=== PATIENT | female | born 1965 | race Caucasian/White ===

== ENCOUNTER 2018-10-01 05:42 | Inpatient (IN) | payer MEDICARE ==
--- NOTE | 2018-10-01 05:56 | ER Document Report ---
ED Medical Screen (RME) - General Stated Complaint: COUGH,HEADACHE Time Seen by Provider: 10/01/18 05:52 Notes: 52-year-old female with chief complaint of respiratory distress, worsening difficulty breathing, comes by EMS, febrile at home, temperature 100.8 on arrival, patient took 1000 mg of Tylenol just prior to arrival reportedly. Given 3 DuoNeb treatments already, 125 mg of Solu-Medrol already. Patient smokes, has history of COPD, has had influenza vaccine. Physical Exam - Respiratory Respiratory status: Respiratory distress, Labored, Tachypnea Breath sounds: Decreased air movement, Rhonchi, Wheezing
[2018-10-01] MEDS: MAGNESIUM SULFATE/D5W 1 GM/100 ML RTUPB IV SCH ×2 (06:08→06:09)
[2018-10-01 06:24] LABS: ABSOLUTE BASOPHILS # (AUTO) 0.1 10^3/uL (0.0-0.2); ABSOLUTE LYMPHOCYTES (AUTO) 3.9 10^3/uL (0.5-4.7); ABSOLUTE MONOCYTES (AUTO) 1.1 10^3/uL (0.1-1.4); ABSOLUTE NEUT (AUTO) 6.1 10^3/uL (1.7-8.2); BASOPHILS % (AUTO) 0.6 % (0-2); HEMATOCRIT 43.8 % (36.0-47.0); HEMOGLOBIN 14.7 g/dL (12.0-15.5); LYMPHOCYTES % (AUTO) 34.6 % (13-45); MEAN CORPUSCULAR HEMOGLOBIN 32.1 pg (27.0-33.4); MEAN CORPUSCULAR HGB CONC 33.5 g/dL (32.0-36.0); MEAN CORPUSCULAR VOLUME 96 fl (80-97); MONOCYTES % (AUTO) 10.1 % (3-13); PLATELET COUNT 156 10^3/uL (150-450); RED BLOOD COUNT 4.58 10^6/uL (3.72-5.28); RED CELL DISTRIBUTION WIDTH 14.6 % (11.5-14.0); SEGMENTED NEUTROPHILS % (AUTO) 54.7 % (42-78); TOTAL CELLS COUNTED % (AUTO) 100 %; WHITE BLOOD COUNT 11.2 10^3/uL (4.0-10.5)
[2018-10-01 06:25] LABS: VENOUS BLOOD HCO3 32.4 mmol/L (20-32); VENOUS BLOOD PH 7.32 (7.30-7.42)
[2018-10-01 06:27] LABS: VENOUS BLOOD PCO2 65.1 mmHg (35-63)
[2018-10-01] MEDS ORDERED: IPRATROPIUM/ALBUTEROL 0.5-2.5 MG/3 ML AMPUL NEB ONE (06:37)
[2018-10-01] MEDS ORDERED: LEVOFLOXACIN 500 MG/D5W RTU 500 MG/100 ML RTUPB IV ONE (06:38)
--- NOTE | 2018-10-01 06:52 | RADIOLOGY REPORT (SQ) ---
EXAM DESCRIPTION: XR CHEST 1 VIEW COMPLETED DATE/TME: 10/01/2018 05:54 CLINICAL HISTORY: fever, shortness of breath COMPARISON: None. FINDINGS: Single frontal view of the chest. Leads overlie the chest. The cardiomediastinal silhouette has normal size and contour. Hazy left basilar opacity. No pneumothorax or large effusion. No displaced rib fractures identified. Upper abdominal soft tissues are unremarkable. IMPRESSION: 1. Hazy left basilar opacity may represent developing lingular pneumonia or atelectasis.
[2018-10-01 06:58] LABS: ALANINE AMINOTRANSFERASE 40 U/L (9-52); ALBUMIN 4.3 g/dL (3.5-5.0); ALKALINE PHOSPHATASE 84 U/L (38-126); ANION GAP 6 (5-19); ASPARTATE AMINO TRANSFERASE 21 U/L (14-36); BILIRUBIN,DIRECT 0.2 mg/dL (0.0-0.4); BILIRUBIN,TOTAL 0.5 mg/dL (0.2-1.3); BLOOD UREA NITROGEN 15 mg/dL (7-20); CALCIUM 8.5 mg/dL (8.4-10.2); CARBON DIOXIDE 33 mmol/L (22-30); CHLORIDE 99 mmol/L (98-107); GLUCOSE 145 mg/dL (75-110); POTASSIUM 4.7 mmol/L (3.6-5.0); SODIUM 137.6 mmol/L (137-145)
--- NOTE | 2018-10-01 07:53 | EKG REPORT ---
SEVERITY:- BORDERLINE ECG - SINUS TACHYCARDIA PROBABLE LEFT ATRIAL ABNORMALITY BORDERLINE LEFT AXIS DEVIATION : Confirmed by: Nallely Castaneda MD 01-Oct-2018 07:52:50
[2018-10-01 08:12] LABS: A TYPE INFLUENZA AG NEGATIVE (NEGATIVE); B INFLUENZA AG NEGATIVE (NEGATIVE)
[2018-10-01] MEDS ORDERED: ONDANSETRON 4 MG TAB.RAPDIS PO PRN (08:34)
[2018-10-01] MEDS ORDERED: ACETAMINOPHEN 650 MG SUPP.RECT PR PRN (08:34)
[2018-10-01] MEDS ORDERED: AZITHROMYCIN 250 MG TABLET PO ONE ×2 (08:42→12:30)
[2018-10-01] MEDS ORDERED: IPRATROPIUM/ALBUTEROL 0.5-2.5 MG/3 ML AMPUL NEB SCH (10:00)
[2018-10-01] MEDS: CEFTRIAXONE 1 GM/D5W RTU 1 GM/50 ML RTUPB IV SCH (11:07)
[2018-10-01] MEDS: METHYLPREDNISOLONE INJ 40 MG/1 ML SDV IV SCH ×3 (11:07→17:28)
[2018-10-01] MEDS: ENOXAPARIN SODIUM INJ 40 MG/0.4 ML DISP.SYRIN SUBCUT SCH (11:23)
[2018-10-01] MEDS: IPRATROPIUM/ALBUTEROL 0.5-2.5 MG/3 ML AMPUL NEB SCH ×4 (11:43→23:48)
--- NOTE | 2018-10-01 13:19 | ER Document Report ---
ED General - General Chief Complaint: Breathing Difficulty Stated Complaint: COUGH,HEADACHE Time Seen by Provider: 10/01/18 05:52 TRAVEL OUTSIDE OF THE [place] IN LAST 30 DAYS: No - HPI Patient complains to provider of: Difficulty breathing Notes: Patient coming in today for evaluation of shortness of breath. Patient has a history of COPD and continues to smoke. Patient was seen by triage provider his notes provided below 52-year-old female with chief complaint of respiratory distress, worsening difficulty breathing, comes by EMS, febrile at home, temperature 100.8 on arriv al, patient took 1000 mg of Tylenol just prior to arrival reportedly. Given 3 DuoNeb treatments already, 125 mg of Solu-Medrol already. Patient smokes, has history of COPD, has had influenza vaccine. Patient upon my evaluation currently on BiPAP states she is feeling better breathing easier however not 100%. Patient denies any recent antibiotics. Patient denies any chest pain abdominal pain nausea vomiting. - Related Data Allergies/Adverse Reactions: No Known Allergies Allergy (Unverified 10/01/18 07:19) Past Medical History - Social History Smoking Status: Former Smoker Family History: Reviewed & Not Pertinent Patient has suicidal ideation: No Patient has homicidal ideation: No Pulmonary Medical History: Reports: Hx Asthma, Hx COPD Renal/ Medical History: Denies: Hx Peritoneal Dialysis Review of Systems - Review of Systems Constitutional: No symptoms reported EENT: No symptoms reported Cardiovascular: No symptoms reported Respiratory: Short of breath, Wheezing Gastrointestinal: No symptoms reported Genitourinary: No symptoms reported Female Genitourinary: No symptoms reported Musculoskeletal: No symptoms reported Skin: No symptoms reported Hematologic/Lymphatic: No symptoms reported Neurological/Psychological: No symptoms reported -: Yes All other systems reviewed and negative Physical Exam - Vital signs Vitals: Resp BP Pulse Ox 23 H 132/81 H 98 10/01/18 05:49 10/01/18 05:49 10/01/18 05:49 Interpretation: Normal - General General appearance: Appears well, Alert - HEENT Head: Normocephalic, Atraumatic Eyes: Normal Pupils: PERRL - Respiratory Respiratory status: No respiratory distress Chest status: Nontender Breath sounds: Rhonchi, Wheezing Chest palpation: Normal - Cardiovascular Rhythm: Regular Heart sounds: Normal auscultation Murmur: No - Abdominal Inspection: Normal Distension: No distension Bowel sounds: Normal Tenderness: Nontender Organomegaly: No organomegaly - Back Back: Normal, Nontender - Extremities General upper extremity: Normal inspection, Nontender, Normal color, Normal ROM, Normal temperature General lower extremity: Normal inspection, Nontender, Normal color, Normal ROM, Normal temperature, Normal weight bearing. No: Ashley's sign - Neurological Neuro grossly intact: Yes Cognition: Normal Orientation: AAOx4 Mari Coma Scale Eye Opening: Spontaneous [place] Coma Scale Verbal: Oriented [place] Coma Scale Motor: Obeys Commands Mari Coma Scale Total: 15 Speech: Normal Motor strength normal: LUE, RUE, LLE, RLE Sensory: Normal - Psychological Associated symptoms: Normal affect, Normal mood - Skin Skin Temperature: Warm Skin Moisture: Dry Skin Color: Normal Course - Re-evaluation Re-evalutation: 10/01/18 13:20 Continue to manage BiPAP during patient stay here. Laboratory studies show hypercapnia chest x-ray was read as possible developing pneumonia. Patient was started on antibiotics. We will discussed patient's case with the hospitalist will admit the patient for further evaluation and treatment - Vital Signs Vital signs: Temp Pulse Resp BP Pulse Ox 98.3 F 15 120/66 93 10/01/18 05:54 10/01/18 12:01 10/01/18 12:01 10/01/18 12:01 - Laboratory Result Diagrams: 10/01/18 06:05 10/01/18 06:05 Laboratory results interpreted by me: 10/01/18 10/01/18 10/01/18 06:05 06:05 06:05 WBC 11.2 H RDW 14.6 H VBG pCO2 65.1 H* VBG HCO3 32.4 H Carbon Dioxide 33 H Glucose 145 H Discharge - Discharge Clinical Impression: COPD exacerbation, Respiratory distress with hypercapnia Pneumonia Qualifiers: Pneumonia type: due to unspecified organism Laterality: unspecified laterality Lung location: unspecified part of lung Qualified Code(s): J18.9 - Pneumonia, unspecified organism Condition: Good Disposition: ADMITTED INPATIENT Admitting Provider: Hospitalist [facility] Unit Admitted: [facility]
[2018-10-01] MEDS ORDERED: ALBUTEROL SULFATE HFA (90 MCG/PUFF) 200 PUFF/8.5 GM MDI IH PRN (14:07)
--- NOTE | 2018-10-01 14:14 | PDOC H&P ---
History of Present Illness Admission Date/PCP: 10/01/18 10:12 Patient complains of: SOB History of Present Illness: ALISA TRAN is a 52 year old female with h/o COPD who is active smoker. she presents with acute onset SOB started 3 days ago associated with fever (max 102), cough and wheezing. CXR in ER + pneumonia. she was hypercapnic and was started on Bipap. Past Medical History Pulmonary Medical History: Reports: Asthma, Chronic Obstructive Pulmonary Disease (COPD) Social History Smoking Status: Current Every Day Smoker Family History Family History: Reviewed & Not Pertinent Parental Family History Reviewed: Yes Children Family History Reviewed: Yes Sibling(s) Family History Reviewed.: Yes Medication/Allergy Home Medications: Albuterol Sulfate [Proair Hfa Inhalation Aerosol 8.5 gm Mdi] 2 puff IH Q6HP PRN 10/01/18 Clonazepam [Klonopin] 0.5 mg PO QHS 10/01/18 Flu Vacc [id number](6Mos Up)/Pf [Fluarix Quad 8244-0104 Syringe] 0.5 ml IM .RECEIVED 06/01/18 MDD 06/01/18 10/01/18 Fluticasone/Salmeterol [Advair 250-50 Diskus 14 Dose/Diskus] 1 inh IH Q12 10/01/18 Pregabalin [Lyrica 100 Mg Capsule] 200 mg PO Q8 10/01/18 Ropinirole HCl [Requip 2 Mg Tablet] 2 mg PO Q12 10/01/18 Tiotropium [place] [Spiriva Respimat] 2 puff IH DAILY 10/01/18 Allergies/Adverse Reactions: No Known Allergies Allergy (Unverified 10/01/18 07:19) Physical Exam Vital Signs: Temp Pulse Resp BP Pulse Ox 98.3 F 15 120/66 93 10/01/18 05:54 10/01/18 12:01 10/01/18 12:01 10/01/18 12:01 Intake & Output 09/30/18 10/01/18 10/02/18 06:59 06:59 06:59 Intake Total 2 150 Balance 2 150 Weight 209 lb 10.554 oz General appearance: PRESENT: cooperative, mild distress, obese Head exam: PRESENT: atraumatic, normocephalic Eye exam: PRESENT: EOMI. ABSENT: conjunctival injection, nystagmus Ear exam: ABSENT: bleeding, drainage Mouth exam: PRESENT: moist, neck supple Neck exam: ABSENT: meningismus, tenderness Respiratory exam: PRESENT: prolonged expiratory phas, wheezes. ABSENT: accessory muscle use Cardiovascular exam: PRESENT: RRR. ABSENT: systolic murmur Pulses: PRESENT: normal radial pulses, normal dorsalis pedis pul GI/Abdominal exam: PRESENT: normal bowel sounds, soft. ABSENT: ascites, mass, tenderness Rectal exam: PRESENT: deferred Extremities exam: ABSENT: calf tenderness, joint swelling, pedal edema Musculoskeletal exam: PRESENT: normal inspection. ABSENT: deformity Neurological exam: PRESENT: alert, awake, oriented to person, oriented to place, oriented to time, oriented to situation Psychiatric exam: PRESENT: appropriate affect, flat affect. ABSENT: agitated, anxious Results Laboratory Results: 10/01/18 06:05 10/01/18 06:05 10/01/18 10/01/18 10/01/18 06:05 06:05 06:05 WBC 11.2 H RBC 4.58 Hgb 14.7 Hct 43.8 MCV 96 MCH 32.1 MCHC 33.5 RDW 14.6 H Plt Count 156 Seg Neutrophils % 54.7 Lymphocytes % 34.6 Monocytes % 10.1 Eosinophils % 0.0 Basophils % 0.6 Absolute Neutrophils 6.1 Absolute Lymphocytes 3.9 Absolute Monocytes 1.1 Absolute Eosinophils 0.0 Absolute Basophils 0.1 VBG pH VBG pCO2 VBG HCO3 VBG Base Excess Sodium 137.6 Potassium 4.7 Chloride 99 Carbon Dioxide 33 H Anion Gap 6 BUN 15 Creatinine 0.54 Est GFR ( Amer) > 60 Est GFR (Non-Af Amer) > 60 Glucose 145 H Lactic Acid 0.8 Calcium 8.5 Magnesium Total Bilirubin 0.5 AST 21 ALT 40 Alkaline Phosphatase 84 Total Protein 7.0 Albumin 4.3 10/01/18 10/01/18 06:05 06:05 WBC RBC Hgb Hct MCV MCH MCHC RDW Plt Count Seg Neutrophils % Lymphocytes % Monocytes % Eosinophils % Basophils % Absolute Neutrophils Absolute Lymphocytes Absolute Monocytes Absolute Eosinophils Absolute Basophils VBG pH 7.32 VBG pCO2 65.1 H* VBG HCO3 32.4 H VBG Base Excess 4.0 Sodium Potassium Chloride Carbon Dioxide Anion Gap BUN Creatinine Est GFR ( Amer) Est GFR (Non-Af Amer) Glucose Lactic Acid Calcium Magnesium 1.9 Total Bilirubin AST ALT Alkaline Phosphatase Total Protein Albumin 10/01/18 10:40 Sputum Gram Stain - Final 10/01/18 10:40 Sputum Sputum Culture - Final 10/01/18 06:05 Troponin I < 0.012 Impressions: Chest X-Ray 10/01/18 05:54 IMPRESSION: 1. Hazy left basilar opacity may represent developing lingular pneumonia or atelectasis. Assessment & Plan - Diagnosis (1) Acute respiratory failure with hypercapnia Is this a current diagnosis for this admission?: Yes Plan: continue BiPAP and titrate as tolerated (2) COPD exacerbation Is this a current diagnosis for this admission?: Yes Plan: start IV solumedrol, aggressive pulmonary toilet, bronchodilators (3) Pneumonia Qualifiers: Pneumonia type: due to unspecified organism Laterality: unspecified lateral ity Lung location: unspecified part of lung Qualified Code(s): J18.9 - Pneumonia, unspecified organism Is this a current diagnosis for this admission?: Yes Plan: start empiric ceftriaxone and azithromycin
[2018-10-01] MEDS ORDERED: (PENDING PHARMACY ID) (Tiotropium Bromide [Spiriva Respimat] 2 PUFF) IH SCH (14:15)
--- NOTE | 2018-10-01 17:43 | RADIOLOGY REPORT (SQ) ---
EXAM DESCRIPTION: CT CHEST WITHOUT COMPLETED DATE/TIME: 10/01/2018 3:59 pm REASON FOR STUDY: pneumonia COMPARISON: Chest x-ray 10/01/2018. TECHNIQUE: CT scan performed of the chest without intravenous contrast. Images reviewed with lung, soft tissue and bone windows. Reconstructed coronal and sagittal MPR images reviewed. All images st ored on PACS. All CT scanners at this facility use dose modulation, iterative reconstruction, and/or weight based d osing when appropriate to reduce radiation dose to as low as reasonably achievable (ALARA). [facility]: Dose Right [facility]: CareDose [facility]: Dose Right [facility]: Teradose 4D [facility]: Smart PingTune RADIATION DOSE: CT Rad equipment meets quality standard of care and radiation dose reduction techniq ues were employed. CTDIvol: 18.8 mGy. DLP: 699 mGy-cm. mGy. LIMITATIONS: Motion artifact. FINDINGS: LUNGS AND PLEURA: There are bilateral emphysematous changes. Tree-in-bud opacities are no tamiko at the bilateral upper lobes. No consolidation, pleural effusion or pneumothorax. HILAR AND MEDIASTINAL STRUCTURES: No identified masses or abnormal nodes. HEART AND VASCULAR STRUCTURES: There is 4.2 x 4.2 cm aneurysmal dilation of the ascending thoracic ao rta. Scatter atherosclerotic calcifications at the thoracic aorta. No pericardial effusion. Amaya ry arteries calcifications are noted. UPPER ABDOMEN: No significant findings. Limited exam. BONES: Mild degenerative changes at the spine. HARDWARE: None in the chest. IMPRESSION: 1. Emphysema. Tree-in-bud opacities at the bilateral upper lobes, suggestive of acute i nfection/ inflammation of the smaller airways such as bronchiolitis or bronchopneumonia. 2. 4.2 x 4.2 cm ascending thoracic aortic aneurysm. TECHNICAL DOCUMENTATION: JOB ID: [id number] [facility] Quality ID # [id number]: Final reports with documentation of one or more dose reduction techniques (e.g., Au tomated exposure control, adjustment of the mA and/or kV according to patient size, use of iterative reconstruction technique) 2010 [employer]- All Rights Reserved Reading location - IP/workstation name: [email or web address]
[2018-10-01] MEDS: ACETAMINOPHEN 325 MG TABLET PO PRN (18:59)
[2018-10-01] MEDS ORDERED: (PENDING PHARMACY ID) (Clonazepam [Klonopin] 0.5 MG) PO SCH (22:00)
[2018-10-01] MEDS: CLONAZEPAM 1 MG TABLET PO SCH (22:17)
[2018-10-01] MEDS: PREGABALIN 100 MG CAPSULE PO SCH (22:17)
[2018-10-01] MEDS: ROPINIROLE HCL 2 MG TABLET PO SCH (22:29)
[2018-10-01] MEDS: FLUTICASONE/SALMETEROL DISKUS 250-50 MCG/DOSE IH SCH (22:29)
[2018-10-02] MEDS: METHYLPREDNISOLONE INJ 40 MG/1 ML SDV IV SCH ×4 (03:24→18:58)
[2018-10-02] MEDS: IPRATROPIUM/ALBUTEROL 0.5-2.5 MG/3 ML AMPUL NEB SCH ×5 (04:34→20:29)
[2018-10-02] MEDS: PREGABALIN 100 MG CAPSULE PO SCH ×3 (06:00→21:53)
[2018-10-02 06:48] LABS: ARTERIAL BLOOD BASE EXCESS 6.4 mmol/L; ARTERIAL BLOOD H2CO3 1.94 mmol/L (1.05-1.35); ARTERIAL BLOOD HCO3 34.6 mmol/L (20-24); ARTERIAL BLOOD O2 SATURATION 98.3 % (94-98); ARTERIAL BLOOD PCO2 64.4 mmHg (35-45); ARTERIAL BLOOD PH 7.35 (7.35-7.45); ARTERIAL BLOOD PO2 127.3 mmHg (80-100); ARTERIAL BLOOD TOTAL CO2 36.6 mmol/L (21-25)
[2018-10-02 06:49] LABS: ARTERIAL BLOOD FIO2 40%
[2018-10-02 06:52] LABS: HEMATOCRIT 44.7 % (36.0-47.0); MEAN CORPUSCULAR HEMOGLOBIN 32.1 pg (27.0-33.4); MEAN CORPUSCULAR HGB CONC 33.6 g/dL (32.0-36.0); MEAN CORPUSCULAR VOLUME 96 fl (80-97); PLATELET COUNT 157 10^3/uL (150-450); RED BLOOD COUNT 4.68 10^6/uL (3.72-5.28); RED CELL DISTRIBUTION WIDTH 14.3 % (11.5-14.0); WHITE BLOOD COUNT 13.2 10^3/uL (4.0-10.5)
[2018-10-02 07:12] LABS: ANION GAP 7 (5-19); BLOOD UREA NITROGEN 15 mg/dL (7-20); CALCIUM 9.2 mg/dL (8.4-10.2); CARBON DIOXIDE 36 mmol/L (22-30); CHLORIDE 99 mmol/L (98-107); GLUCOSE 163 mg/dL (75-110); POTASSIUM 4.9 mmol/L (3.6-5.0); SODIUM 142.4 mmol/L (137-145)
[2018-10-02] MEDS: CEFTRIAXONE 1 GM/D5W RTU 1 GM/50 ML RTUPB IV SCH (09:17)
[2018-10-02] MEDS: ENOXAPARIN SODIUM INJ 40 MG/0.4 ML DISP.SYRIN SUBCUT SCH (09:18)
[2018-10-02] MEDS: AZITHROMYCIN 250 MG TABLET PO SCH (09:18)
[2018-10-02] MEDS: FLUTICASONE/SALMETEROL DISKUS 250-50 MCG/DOSE IH SCH ×2 (09:19→21:54)
[2018-10-02] MEDS: ROPINIROLE HCL 2 MG TABLET PO SCH ×2 (09:26→21:53)
[2018-10-02] MEDS ORDERED: ALBUTEROL SULFATE HFA (90 MCG/PUFF) 200 PUFF/8.5 GM MDI IH PRN (12:02)
--- NOTE | 2018-10-02 15:13 | PDOC PROGRESS REPORT ---
Subjective Progress Note for:: 10/02/18 Subjective:: Patient was seen and examined today. She has been on and off BiPAP. ABG shows persistent hypercapnia. Patient feels weak and still coughing and wheezing. She is still short of breath with exertion. Reason For Visit: COPD EXACERBATION Physical Exam Vital Signs: Temp Pulse Resp BP Pulse Ox 98.3 F 108 H 14 110/75 88 L 10/02/18 06:05 10/02/18 08:54 10/02/18 11:00 10/02/18 10:01 10/02/18 11:00 Intake & Output 10/01/18 10/02/18 10/03/18 06:59 06:59 06:59 Intake Total 2 150 290 Balance 2 150 290 Weight 209 lb 10.554 oz General appearance: PRESENT: mild distress, obese Head exam: PRESENT: atraumatic, normocephalic Mouth exam: PRESENT: neck supple. ABSENT: moist Neck exam: ABSENT: meningismus, tenderness Respiratory exam: PRESENT: accessory muscle use, prolonged expiratory phas, wheezes Cardiovascular exam: PRESENT: RRR. ABSENT: systolic murmur Pulses: PRESENT: normal radial pulses GI/Abdominal exam: PRESENT: normal bowel sounds, soft. ABSENT: mass, tenderness Rectal exam: PRESENT: deferred Extremities exam: ABSENT: pedal edema Neurological exam: PRESENT: alert, awake, oriented to person, oriented to place, oriented to time, oriented to situation Results Laboratory Results: 10/02/18 06:10 10/02/18 06:10 10/02/18 10/02/18 10/02/18 06:10 06:10 06:31 WBC 13.2 H RBC 4.68 Hgb 15.0 Hct 44.7 MCV 96 MCH 32.1 MCHC 33.6 RDW 14.3 H Plt Count 157 Carbonic Acid 1.94 H HCO3/H2CO3 Ratio 17:1 ABG pH 7.35 ABG pCO2 64.4 H ABG pO2 127.3 H ABG HCO3 34.6 H ABG O2 Saturation 98.3 H ABG Base Excess 6.4 FiO2 40% Sodium 142.4 Potassium 4.9 Chloride 99 Carbon Dioxide 36 H Anion Gap 7 BUN 15 Creatinine 0.42 L Est GFR ( Amer) > 60 Est GFR (Non-Af Amer) > 60 Glucose 163 H Calcium 9.2 10/01/18 10:40 Sputum Gram Stain - Final 10/01/18 10:40 Sputum Sputum Culture - Final 10/01/18 06:05 Troponin I < 0.012 Impressions: Chest CT 10/01/18 00:00 IMPRESSION: 1. Emphysema. Tree-in-bud opacities at the bilateral upper lobes, suggestive of acute infection/ inflammation of the smaller airways such as bronchiolitis or bronchopneumonia. 2. 4.2 x 4.2 cm ascending thoracic aortic aneurysm. Chest X-Ray 10/01/18 05:54 IMPRESSION: 1. Hazy left basilar opacity may represent developing lingular pneumonia or atelectasis. Assessment & Plan - Diagnosis (1) Acute respiratory failure with hypercapnia Is this a current diagnosis for this admission?: Yes Plan: continue BiPAP and titrate as tolerated. Consult pulmonology. (2) COPD exacerbation Is this a current diagnosis for this admission?: Yes Plan: Continue IV solumedrol, aggressive pulmonary toilet, bronchodilators (3) Pneumonia Qualifiers: Pneumonia type: due to unspecified organism Laterality: unspecified laterality Lung location: unspecified part of lung Qualified Code(s): J18.9 - Pneumonia, unspecified organism Is this a current diagnosis for this admission?: Yes Plan: Continue empiric ceftriaxone and azithromycin. Monitor blood culture.
[2018-10-02] MEDS: CLONAZEPAM 1 MG TABLET PO SCH (21:53)
[2018-10-02] MEDS ORDERED: ALBUTEROL SULFATE HFA (90 MCG/PUFF) 200 PUFF/8.5 GM MDI IH ONE (22:28)
[2018-10-03] MEDS: IPRATROPIUM/ALBUTEROL 0.5-2.5 MG/3 ML AMPUL NEB SCH ×6 (00:34→21:23)
[2018-10-03] MEDS: METHYLPREDNISOLONE INJ 40 MG/1 ML SDV IV SCH ×5 (01:09→22:10)
[2018-10-03] MEDS: ACETAMINOPHEN 325 MG TABLET PO PRN ×2 (03:55→13:33)
[2018-10-03 04:39] LABS: HEMATOCRIT 42.1 % (36.0-47.0); HEMOGLOBIN 14.2 g/dL (12.0-15.5); MEAN CORPUSCULAR HGB CONC 33.8 g/dL (32.0-36.0); MEAN CORPUSCULAR VOLUME 95 fl (80-97); PLATELET COUNT 150 10^3/uL (150-450); RED BLOOD COUNT 4.45 10^6/uL (3.72-5.28); RED CELL DISTRIBUTION WIDTH 14.5 % (11.5-14.0); WHITE BLOOD COUNT 14.2 10^3/uL (4.0-10.5)
[2018-10-03 05:02] LABS: ANION GAP 9 (5-19); BLOOD UREA NITROGEN 20 mg/dL (7-20); CARBON DIOXIDE 33 mmol/L (22-30); CHLORIDE 101 mmol/L (98-107); GLUCOSE 233 mg/dL (75-110); POTASSIUM 4.6 mmol/L (3.6-5.0)
[2018-10-03] MEDS: PREGABALIN 100 MG CAPSULE PO SCH ×3 (05:31→22:10)
[2018-10-03 06:05] LABS: ARTERIAL BLOOD BASE EXCESS 3.8 mmol/L; ARTERIAL BLOOD H2CO3 1.66 mmol/L (1.05-1.35); ARTERIAL BLOOD HCO3 30.7 mmol/L (20-24); ARTERIAL BLOOD O2 SATURATION 94.6 % (94-98); ARTERIAL BLOOD PCO2 55.3 mmHg (35-45); ARTERIAL BLOOD PH 7.36 (7.35-7.45); ARTERIAL BLOOD PO2 76.2 mmHg (80-100); ARTERIAL BLOOD TOTAL CO2 32.4 mmol/L (21-25)
[2018-10-03 06:09] LABS: ARTERIAL BLOOD FIO2 35%
[2018-10-03] MEDS: CEFTRIAXONE 1 GM/D5W RTU 1 GM/50 ML RTUPB IV SCH (09:07)
[2018-10-03] MEDS: AZITHROMYCIN 250 MG TABLET PO SCH (09:07)
[2018-10-03] MEDS: ROPINIROLE HCL 2 MG TABLET PO SCH ×2 (09:08→22:11)
[2018-10-03] MEDS: ENOXAPARIN SODIUM INJ 40 MG/0.4 ML DISP.SYRIN SUBCUT SCH (09:08)
[2018-10-03] MEDS: FLUTICASONE/SALMETEROL DISKUS 250-50 MCG/DOSE IH SCH ×2 (09:08→22:12)
--- NOTE | 2018-10-03 11:04 | RADIOLOGY REPORT (SQ) ---
EXAM DESCRIPTION: CHEST SINGLE VIEW COMPLETED DATE/TIME: 10/03/2018 10:45 am REASON FOR STUDY: pneumonia COMPARISON: 10/03/2018 EXAM PARAMETERS: NUMBER OF VIEWS: One view. TECHNIQUE: Single frontal radiographic view of the chest acquired. RADIATION DOSE: NA LIMITATIONS: None. FINDINGS: LUNGS AND PLEURA: Improved but persistent minimal lingular opacities. No significant effu deedee. No pneumothorax. MEDIASTINUM AND HILAR STRUCTURES: No masses. Contour normal. HEART AND VASCULAR STRUCTURES: Normal heart size. Atherosclerotic aorta. BONES: No acute findings. HARDWARE: None in the chest. OTHER: No other significant finding. IMPRESSION: Improved but persistent hazy left lingular opacities. TECHNICAL DOCUMENTATION: JOB ID: [id number] [address]- All Rights Reserved Reading location - IP/workstation name: [email or web address]
--- NOTE | 2018-10-03 14:43 | PDOC PROGRESS REPORT ---
Subjective Progress Note for:: 10/03/18 Subjective:: Patient was seen and examined today. She has been on and off BiPAP. ABG shows persistent hypercapnia but currently improving with PCO2 of 55. She is using BiPAP during sleep for now. She is still coughing and wheezing and not back at her baseline yet. Reason For Visit: COPD EXACERBATION Physical Exam Vital Signs: Temp Pulse Resp BP Pulse Ox 98.0 F 105 H 20 121/76 89 L 10/03/18 12:07 10/03/18 14:00 10/03/18 13:04 10/03/18 12:07 10/03/18 13:04 Intake & Output 10/02/18 10/03/18 10/04/18 06:59 06:59 06:59 Intake Total 150 408 50 Balance 150 408 50 Weight 211 lb 6.773 oz General appearance: PRESENT: no acute distress, cooperative, obese, other - Sleeping on BiPAP Head exam: PRESENT: atraumatic, normocephalic Mouth exam: PRESENT: moist, neck supple Neck exam: ABSENT: meningismus, tenderness Respiratory exam: PRESENT: wheezes. ABSENT: accessory muscle use Cardiovascular exam: PRESENT: RRR Pulses: PRESENT: normal radial pulses GI/Abdominal exam: PRESENT: normal bowel sounds, soft. ABSENT: tenderness Rectal exam: PRESENT: deferred Musculoskeletal exam: PRESENT: ambulatory. ABSENT: deformity Neurological exam: PRESENT: alert, awake, oriented to person, oriented to place, oriented to time, oriented to situation Results Laboratory Results: 10/03/18 04:28 10/03/18 04:28 10/03/18 10/03/18 10/03/18 04:28 04:28 05:56 WBC 14.2 H RBC 4.45 Hgb 14.2 Hct 42.1 MCV 95 MCH 32.0 MCHC 33.8 RDW 14.5 H Plt Count 150 Carbonic Acid 1.66 H HCO3/H2CO3 Ratio 18:1 ABG pH 7.36 ABG pCO2 55.3 H ABG pO2 76.2 L ABG HCO3 30.7 H ABG O2 Saturation 94.6 ABG Base Excess 3.8 FiO2 35% Sodium 143.0 Potassium 4.6 Chloride 101 Carbon Dioxide 33 H Anion Gap 9 BUN 20 Creatinine 0.50 L Est GFR ( Amer) > 60 Est GFR (Non-Af Amer) > 60 Glucose 233 H Calcium 9.0 10/01/18 06:05 Troponin I < 0.012 Impressions: Chest CT 10/01/18 00:00 IMPRESSION: 1. Emphysema. Tree-in-bud opacities at the bilateral upper lobes, suggestive of acute infection/ inflammation of the smaller airways such as bronchiolitis or bronchopneumonia. 2. 4.2 x 4.2 cm ascending thoracic aortic aneurysm. Chest X-Ray 10/03/18 06:00 IMPRESSION: Improved but persistent hazy left lingular opacities. Assessment & Plan - Diagnosis (1) Acute respiratory failure with hypercapnia Is this a current diagnosis for this admission?: Yes Plan: continue BiPAP and titrate as tolerated. Currently she is using during sleep only. Consult pulmonology still pending. (2) COPD exacerbation Is this a current diagnosis for this admission?: Yes Plan: Continue IV solumedrol, aggressive pulmonary toilet, bronchodilators (3) Pneumonia Qualifiers: Pneumonia type: due to unspecified organism Laterality: unspecified laterality Lung location: unspecified part of lung Qualified Code(s): J18.9 - Pneumonia, unspecified organism Is this a current diagnosis for this admission?: Yes Plan: Continue empiric ceftriaxone and azithromycin. Monitor blood culture.
[2018-10-03] MEDS: CLONAZEPAM 1 MG TABLET PO SCH (22:09)
[2018-10-03] MEDS: TIOTROPIUM BROMIDE DPI 5 CAP/KIT (18 MCG/CAP) IH SCH (22:11)
[2018-10-04] MEDS: IPRATROPIUM/ALBUTEROL 0.5-2.5 MG/3 ML AMPUL NEB SCH ×6 (00:12→19:20)
[2018-10-04] MEDS: METHYLPREDNISOLONE INJ 40 MG/1 ML SDV IV SCH ×4 (03:14→21:35)
[2018-10-04] MEDS: TEMAZEPAM 7.5 MG CAPSULE PO PRN (04:30)
[2018-10-04 06:21] LABS: HEMATOCRIT 41.5 % (36.0-47.0); HEMOGLOBIN 13.9 g/dL (12.0-15.5); MEAN CORPUSCULAR HEMOGLOBIN 31.9 pg (27.0-33.4); MEAN CORPUSCULAR HGB CONC 33.5 g/dL (32.0-36.0); MEAN CORPUSCULAR VOLUME 95 fl (80-97); PLATELET COUNT 139 10^3/uL (150-450); RED BLOOD COUNT 4.36 10^6/uL (3.72-5.28); RED CELL DISTRIBUTION WIDTH 14.6 % (11.5-14.0); WHITE BLOOD COUNT 10.6 10^3/uL (4.0-10.5)
[2018-10-04] MEDS: PREGABALIN 100 MG CAPSULE PO SCH ×3 (06:31→21:36)
[2018-10-04 06:41] LABS: ANION GAP 10 (5-19); BLOOD UREA NITROGEN 19 mg/dL (7-20); CARBON DIOXIDE 31 mmol/L (22-30); CHLORIDE 101 mmol/L (98-107); GLUCOSE 256 mg/dL (75-110); POTASSIUM 4.7 mmol/L (3.6-5.0); SODIUM 141.7 mmol/L (137-145)
[2018-10-04 06:44] LABS: ARTERIAL BLOOD BASE EXCESS 4.8 mmol/L; ARTERIAL BLOOD FIO2 3L; ARTERIAL BLOOD H2CO3 1.78 mmol/L (1.05-1.35); ARTERIAL BLOOD HCO3 32.2 mmol/L (20-24); ARTERIAL BLOOD O2 SATURATION 95.6 % (94-98); ARTERIAL BLOOD PCO2 59.3 mmHg (35-45); ARTERIAL BLOOD PH 7.35 (7.35-7.45); ARTERIAL BLOOD PO2 83.8 mmHg (80-100)
[2018-10-04] MEDS: FLUTICASONE/SALMETEROL DISKUS 250-50 MCG/DOSE IH SCH ×2 (10:56→21:37)
[2018-10-04] MEDS: ENOXAPARIN SODIUM INJ 40 MG/0.4 ML DISP.SYRIN SUBCUT SCH (10:57)
[2018-10-04] MEDS: AZITHROMYCIN 250 MG TABLET PO SCH (10:58)
[2018-10-04] MEDS: ROPINIROLE HCL 2 MG TABLET PO SCH ×2 (10:58→21:36)
[2018-10-04] MEDS: TIOTROPIUM BROMIDE DPI 5 CAP/KIT (18 MCG/CAP) IH SCH (10:59)
[2018-10-04] MEDS: CEFTRIAXONE 1 GM/D5W RTU 1 GM/50 ML RTUPB IV SCH (11:01)
--- NOTE | 2018-10-04 15:38 | CONSULTATION REPORT E ---
Consultation Report NAME: ALISA HIRSCH : 1965 AGE: 52Y DATE: 10/03/2018 309 A TO: RAMONA SHANE M.D. FROM: NKECHI PUENTE M.D. Requesting Physician HISTORY OF PRESENT ILLNESS: The patient is a 53-year-old female who came in with increasing dyspnea, wheezing, chest tightness over the last 2 to 3 days. She denies labile coughing, yellow-green phlegm, denies any fevers or chills at home. Condition worsened so patient went to the emergency room and was subsequently admitted. Patient was placed on BiPAP and given IV solu-medrol and nebulizer treatment. Clearing the cough makes him feel a lot better. She denies hemoptysis. No vomiting or diarrhea. PAST MEDICAL HISTORY: 1. Asthma. 2. COPD. SOCIAL HISTORY: History of smoking a pack a day for several years. FAMILY HISTORY: Reviewed and nothing pertinent. HOME MEDICATIONS: 1. Albuterol ProAir inhaler 2 puffs every 6 hours as needed. 2. Clonopin 0.5 mg p.o. at bedtime for severe anxiety. 3. Advair 250/50 1 puff daily. 4. Lyrica 100 mg capsule. 5. Requip 2 mg p.o. q. 12. ALLERGIES: No drug allergies. PHYSICAL EXAMINATION: GENERAL: The patient is a wake, alert, coherent, oriented x3. VITAL SIGNS: Temperature 97.7, T-max of 98 degrees Fahrenheit. Heart rate is 91, blood pressure is 143/65, respiratory rate of 18, saturation is 95%. HEENT: Eyes; no jaundice or pallor. Ears, nose, and throat; no ear drainage and no nasal discharge. CHEST AND LUNGS: No wheezing, no rhonchi, no coarse crackles. CARDIOVASCULAR: S1, S2 distinct. Normal rate, regular rhythm. ABDOMEN: Flabby. Positive bowel sounds. Soft, nondistended. EXTREMITIES: No joint swelling. No cellulitis. LABORATORY: CBC done today showed a white count of 14.2, hemoglobin of 13.3 yesterday, hemoglobin is 14.3, hematocrit 42.1, and platelet count 150. ABGs done today shows pH of 7.3, PCO2 55.3, PO2 76.2, and oxygen saturation 94.6%. Chemistry done today showed sodium is 143, potassium 4.6, chloride 101, anion gap is 33, BUN 9, creatinine 2, glucose 233, and calcium 9. Chest x-ray done today showed ,October 03, 2018, showed some increase in filtration in left lower lung. Chest CT scan done on October 01, 2018 showed some findings suspicious for infectious process. No consolidation. Chest x-ray done on October 01, 2018 shows retained blood opacities and interstitial infiltrate involving the left lingular area. ASSESSMENT: 1. COPD/Bronchial asthma in active severe exacerbation. Currently improving. There is no wheezing or spasms in the posterior chest. Some intermittent wheezing in the anterior chest left side. 2. Pneumonia, early involving the lingular segment based on today's x-ray and chest CAT scan on October 01, 2018. PLAN/RECOMMENDATIONS: 1. Continue Advair 250 1 puff daily. 2. Discontinue the Spiriva Respimat; not available. Patient will use Spiriva inhaler 1 capsule daily. 3. Decrease solu-medrol dose to 40 mg q. 8 hours. 4. GI prophylaxis. 5. Patient is taking Clonopin for severe anxiety. 6. Continue antinue antibiotics. DICTATING PHYSICIAN: RAMONA SHANE MD,DAVID,MPH [id number] [id number] ID: [id number] JOB#: [id number] ACCT: [id number] cc:RAMONA SHANE M.D. > MTDD
--- NOTE | 2018-10-04 18:33 | PDOC PROGRESS REPORT ---
Subjective Progress Note for:: 10/04/18 Subjective:: Patient was seen and examined today. She has been on and off BiPAP. ABG shows persistent hypercapnia but currently improving with PCO2 of 59. She is using BiPAP during sleep for now. She is still coughing and wheezing and far from her baseline. Reason For Visit: COPD EXACERBATION Physical Exam Vital Signs: Temp Pulse Resp BP Pulse Ox 97.7 F 96 22 H 148/78 H 96 10/04/18 15:32 10/04/18 16:03 10/04/18 16:03 10/04/18 15:32 10/04/18 16:03 Intake & Output 10/03/18 10/04/18 10/05/18 06:59 06:59 06:59 Intake Total 408 727 674 Balance 408 727 674 Weight 211 lb 6.773 oz 215 lb 9.793 oz General appearance: PRESENT: mild distress, obese, other - BiPAP Head exam: PRESENT: atraumatic, normocephalic Eye exam: ABSENT: conjunctival injection Mouth exam: PRESENT: moist, neck supple Neck exam: ABSENT: meningismus, tenderness Respiratory exam: PRESENT: prolonged expiratory phas, wheezes. ABSENT: accessory muscle use Cardiovascular exam: PRESENT: RRR Pulses: PRESENT: normal radial pulses GI/Abdominal exam: PRESENT: normal bowel sounds, soft Rectal exam: PRESENT: deferred Extremities exam: ABSENT: joint swelling, pedal edema Neurological exam: PRESENT: alert, awake, oriented to person, oriented to place, oriented to time, oriented to situation Psychiatric exam: PRESENT: anxious Results Laboratory Results: 10/04/18 05:37 10/04/18 05:37 10/04/18 10/04/18 10/04/18 05:37 05:37 06:25 WBC 10.6 H RBC 4.36 Hgb 13.9 Hct 41.5 MCV 95 MCH 31.9 MCHC 33.5 RDW 14.6 H Plt Count 139 L Carbonic Acid 1.78 H HCO3/H2CO3 Ratio 18:1 ABG pH 7.35 ABG pCO2 59.3 H ABG pO2 83.8 ABG HCO3 32.2 H ABG O2 Saturation 95.6 ABG Base Excess 4.8 FiO2 3L Sodium 141.7 Potassium 4.7 Chloride 101 Carbon Dioxide 31 H Anion Gap 10 BUN 19 Creatinine 0.53 Est GFR ( Amer) > 60 Est GFR (Non-Af Amer) > 60 Glucose 256 H Calcium 9.0 10/01/18 06:05 Troponin I < 0.012 Impressions: Chest CT 10/01/18 00:00 IMPRESSION: 1. Emphysema. Tree-in-bud opacities at the bilateral upper lobes, suggestive of acute infection/ inflammation of the smaller airways such as bronchiolitis or bronchopneumonia. 2. 4.2 x 4.2 cm ascending thoracic aortic aneurysm. Chest X-Ray 10/03/18 06:00 IMPRESSION: Improved but persistent hazy left lingular opacities. Assessment & Plan - Diagnosis (1) Acute respiratory failure with hypercapnia Is this a current diagnosis for this admission?: Yes Plan: continue BiPAP and titrate as tolerated. Currently she is using during sleep and intermittently during the day. Appreciate consult from pulmonology.may need BiPAP on discharge. (2) COPD exacerbation Is this a current diagnosis for this admission?: Yes Plan: Continue IV solumedrol (dose decreased), aggressive pulmonary toilet, bronchodilators (3) Pneumonia Qualifiers: Pneumonia type: due to unspecified organism Laterality: unspecified laterality Lung location: unspecified part of lung Qualified Code(s): J18.9 - Pneumonia, unspecified organism Is this a current diagnosis for this admission?: Yes Plan: Continue empiric ceftriaxone and azithromycin. Monitor blood culture.
[2018-10-04] MEDS: CLONAZEPAM 1 MG TABLET PO SCH (21:36)
[2018-10-05] MEDS: IPRATROPIUM/ALBUTEROL 0.5-2.5 MG/3 ML AMPUL NEB SCH ×7 (00:21→23:54)
[2018-10-05] MEDS: ACETAMINOPHEN 325 MG TABLET PO PRN ×2 (04:41→21:36)
[2018-10-05] MEDS: TEMAZEPAM 7.5 MG CAPSULE PO PRN (04:41)
[2018-10-05] MEDS: METHYLPREDNISOLONE INJ 40 MG/1 ML SDV IV SCH ×4 (04:41→21:29)
[2018-10-05] MEDS: PREGABALIN 100 MG CAPSULE PO SCH ×3 (05:24→21:30)
[2018-10-05 05:29] LABS: HEMATOCRIT 41.6 % (36.0-47.0); HEMOGLOBIN 14.1 g/dL (12.0-15.5); MEAN CORPUSCULAR HGB CONC 33.8 g/dL (32.0-36.0); MEAN CORPUSCULAR VOLUME 95 fl (80-97); PLATELET COUNT 141 10^3/uL (150-450); RED CELL DISTRIBUTION WIDTH 14.4 % (11.5-14.0); WHITE BLOOD COUNT 9.6 10^3/uL (4.0-10.5)
[2018-10-05 05:59] LABS: ARTERIAL BLOOD BASE EXCESS 5.8 mmol/L; ARTERIAL BLOOD H2CO3 1.83 mmol/L (1.05-1.35); ARTERIAL BLOOD HCO3 33.3 mmol/L (20-24); ARTERIAL BLOOD O2 SATURATION 97.3 % (94-98); ARTERIAL BLOOD PCO2 60.7 mmHg (35-45); ARTERIAL BLOOD PH 7.36 (7.35-7.45); ARTERIAL BLOOD PO2 101.8 mmHg (80-100); ARTERIAL BLOOD TOTAL CO2 35.2 mmol/L (21-25)
[2018-10-05 05:59] LABS: ANION GAP 8 (5-19); BLOOD UREA NITROGEN 18 mg/dL (7-20); CALCIUM 8.9 mg/dL (8.4-10.2); CARBON DIOXIDE 34 mmol/L (22-30); CHLORIDE 99 mmol/L (98-107); GLUCOSE 225 mg/dL (75-110); POTASSIUM 4.8 mmol/L (3.6-5.0); SODIUM 141.3 mmol/L (137-145)
[2018-10-05 06:02] LABS: ARTERIAL BLOOD FIO2 35%
[2018-10-05] MEDS: ROPINIROLE HCL 2 MG TABLET PO SCH ×2 (10:53→21:30)
[2018-10-05] MEDS: CEFTRIAXONE 1 GM/D5W RTU 1 GM/50 ML RTUPB IV SCH (10:53)
[2018-10-05] MEDS: AZITHROMYCIN 250 MG TABLET PO SCH (10:53)
[2018-10-05] MEDS: FLUTICASONE/SALMETEROL DISKUS 250-50 MCG/DOSE IH SCH ×2 (10:54→21:31)
[2018-10-05] MEDS: TIOTROPIUM BROMIDE DPI 5 CAP/KIT (18 MCG/CAP) IH SCH (10:54)
[2018-10-05] MEDS: ENOXAPARIN SODIUM INJ 40 MG/0.4 ML DISP.SYRIN SUBCUT SCH (10:55)
--- NOTE | 2018-10-05 11:38 | RADIOLOGY REPORT (SQ) ---
EXAM DESCRIPTION: CHEST 2 VIEWS COMPLETED DATE/TIME: 10/05/2018 10:51 am REASON FOR STUDY: pneumonia COMPARISON: CT chest 10/01/2018 AP chest 10/01/2018, 10/03/2018 EXAM PARAMETERS: NUMBER OF VIEWS: two views TECHNIQUE: Digital Frontal and Lateral radiographic views of the chest acquired. RADIATION DOSE: NA LIMITATIONS: none FINDINGS: LUNGS AND PLEURA: No opacities, masses or pneumothorax. No pleural effusion. MEDIASTINUM AND HILAR STRUCTURES: No masses or contour abnormalities. HEART AND VASCULAR STRUCTURES: Heart normal size. No evidence for failure. BONES: No acute findings. HARDWARE: None in the chest. OTHER: No other significant finding. IMPRESSION: NO ACUTE RADIOGRAPHIC FINDING IN THE CHEST. TECHNICAL DOCUMENTATION: JOB ID: [id number] [employer]- All Rights Reserved Reading location - IP/workstation name: [email or web address]
--- NOTE | 2018-10-05 15:16 | PDOC PROGRESS REPORT ---
Subjective Progress Note for:: 10/05/18 Subjective:: Patient was seen and examined today. She has been on and off BiPAP. ABG shows persistent hypercapnia but improved and now stable. She is using BiPAP during sleep for now. She is still coughing and wheezing and not at her baseline. Reason For Visit: COPD EXACERBATION Physical Exam Vital Signs: Temp Pulse Resp BP Pulse Ox 97.5 F 71 16 124/74 96 10/05/18 07:31 10/05/18 11:25 10/05/18 11:45 10/05/18 07:31 10/05/18 11:25 Intake & Output 10/04/18 10/05/18 10/06/18 06:59 06:59 06:59 Intake Total 727 914 50 Balance 727 914 50 Weight 215 lb 9.793 oz 206 lb 5.643 oz General appearance: PRESENT: no acute distress, cooperative, obese Head exam: PRESENT: atraumatic, normocephalic Mouth exam: PRESENT: moist, neck supple Neck exam: ABSENT: meningismus, tenderness Respiratory exam: PRESENT: prolonged expiratory phas, wheezes Cardiovascular exam: PRESENT: RRR Pulses: PRESENT: normal radial pulses GI/Abdominal exam: PRESENT: normal bowel sounds, soft Rectal exam: PRESENT: deferred Musculoskeletal exam: PRESENT: ambulatory. ABSENT: deformity Neurological exam: PRESENT: alert, awake, oriented to person, oriented to place, oriented to time, oriented to situation Results Laboratory Results: 10/05/18 04:19 10/05/18 04:19 10/05/18 10/05/18 10/05/18 04:19 04:19 05:40 WBC 9.6 RBC 4.40 Hgb 14.1 Hct 41.6 MCV 95 MCH 32.0 MCHC 33.8 RDW 14.4 H Plt Count 141 L Carbonic Acid 1.83 H HCO3/H2CO3 Ratio 18:1 ABG pH 7.36 ABG pCO2 60.7 H ABG pO2 101.8 H ABG HCO3 33.3 H ABG O2 Saturation 97.3 ABG Base Excess 5.8 FiO2 35% Sodium 141.3 Potassium 4.8 Chloride 99 Carbon Dioxide 34 H Anion Gap 8 BUN 18 Creatinine 0.54 Est GFR ( Amer) > 60 Est GFR (Non-Af Amer) > 60 Glucose 225 H Calcium 8.9 10/01/18 06:05 Troponin I < 0.012 Impressions: Chest CT 10/01/18 00:00 IMPRESSION: 1. Emphysema. Tree-in-bud opacities at the bilateral upper lobes, suggestive of acute infection/ inflammation of the smaller airways such as bronchiolitis or bronchopneumonia. 2. 4.2 x 4.2 cm ascending thoracic aortic aneurysm. Chest X-Ray 10/05/18 06:00 IMPRESSION: NO ACUTE RADIOGRAPHIC FINDING IN THE CHEST. Assessment & Plan - Diagnosis (1) Acute respiratory failure with hypercapnia Is this a current diagnosis for this admission?: Yes Plan: continue BiPAP and titrate as tolerated. Currently she is using during sleep and intermittently during the day. Appreciate consult from pulmonology. may need BiPAP on discharge. (2) COPD exacerbation Is this a current diagnosis for this admission?: Yes Plan: Continue IV solumedrol, aggressive pulmonary toilet, bronchodilators. Not at her baseline yet. (3) Pneumonia Qualifiers: Pneumonia type: due to unspecified organism Laterality: unspecified laterality Lung location: unspecified part of lung Qualified Code(s): J18.9 - Pneumonia, unspecified organism Is this a current diagnosis for this admission?: Yes Plan: Continue empiric ceftriaxone and azithromycin. Monitor blood culture.
[2018-10-05] MEDS: CLONAZEPAM 1 MG TABLET PO SCH (21:30)
[2018-10-06] MEDS: METHYLPREDNISOLONE INJ 40 MG/1 ML SDV IV SCH ×4 (02:16→21:17)
[2018-10-06] MEDS: TEMAZEPAM 7.5 MG CAPSULE PO PRN (03:28)
[2018-10-06] MEDS: IPRATROPIUM/ALBUTEROL 0.5-2.5 MG/3 ML AMPUL NEB SCH ×5 (04:19→20:27)
[2018-10-06] MEDS: PREGABALIN 100 MG CAPSULE PO SCH ×3 (05:23→21:17)
[2018-10-06] MEDS: FLUTICASONE/SALMETEROL DISKUS 250-50 MCG/DOSE IH SCH ×2 (09:31→21:17)
[2018-10-06] MEDS: ENOXAPARIN SODIUM INJ 40 MG/0.4 ML DISP.SYRIN SUBCUT SCH (09:31)
[2018-10-06] MEDS: ROPINIROLE HCL 2 MG TABLET PO SCH ×2 (09:31→21:17)
[2018-10-06] MEDS: TIOTROPIUM BROMIDE DPI 5 CAP/KIT (18 MCG/CAP) IH SCH (09:32)
[2018-10-06] MEDS: CEFTRIAXONE 1 GM/D5W RTU 1 GM/50 ML RTUPB IV SCH (09:32)
[2018-10-06] MEDS: AZITHROMYCIN 250 MG TABLET PO SCH (09:33)
[2018-10-06] MEDS: ACETAMINOPHEN 325 MG TABLET PO PRN (11:57)
--- NOTE | 2018-10-06 18:19 | PDOC PROGRESS REPORT ---
Subjective Progress Note for:: 10/06/18 Subjective:: Patient was seen and examined today. Currently on BiPAP. She has been on and off BiPAP. She still does not feel that she is able to go home. Reason For Visit: COPD EXACERBATION Physical Exam Vital Signs: Temp Pulse Resp BP Pulse Ox 97.5 F 69 18 150/81 H 93 10/06/18 15:33 10/06/18 16:16 10/06/18 16:16 10/06/18 15:33 10/06/18 16:16 Intake & Output 10/05/18 10/06/18 10/07/18 06:59 06:59 06:59 Intake Total 914 968 286 Balance 914 968 286 Weight 206 lb 5.643 oz 208 lb 5.389 oz General appearance: PRESENT: cooperative, mild distress, obese Head exam: PRESENT: atraumatic, normocephalic Eye exam: ABSENT: conjunctival injection Mouth exam: PRESENT: moist, neck supple Neck exam: ABSENT: meningismus, tenderness Respiratory exam: PRESENT: accessory muscle use, rhonchi, wheezes Cardiovascular exam: PRESENT: RRR Pulses: PRESENT: normal radial pulses GI/Abdominal exam: PRESENT: normal bowel sounds, soft. ABSENT: tenderness Rectal exam: PRESENT: deferred Musculoskeletal exam: PRESENT: ambulatory. ABSENT: deformity Neurological exam: PRESENT: alert, awake, oriented to person, oriented to place, oriented to time, oriented to situation Results Laboratory Results: 10/05/18 04:19 10/05/18 04:19 10/01/18 08:33 Blood Blood Culture - Final NO GROWTH IN 5 DAYS 10/01/18 06:05 Blood Blood Culture - Final NO GROWTH IN 5 DAYS 10/01/18 06:05 Troponin I < 0.012 Impressions: Chest CT 10/01/18 00:00 IMPRESSION: 1. Emphysema. Tree-in-bud opacities at the bilateral upper lobes, suggestive of acute infection/ inflammation of the smaller airways such as bronchiolitis or bronchopneumonia. 2. 4.2 x 4.2 cm ascending thoracic aortic aneurysm. Chest X-Ray 10/05/18 06:00 IMPRESSION: NO ACUTE RADIOGRAPHIC FINDING IN THE CHEST. Assessment & Plan - Diagnosis (1) Acute respiratory failure with hypercapnia Is this a current diagnosis for this admission?: Yes Plan: continue BiPAP and titrate as tolerated. she is using during sleep and intermittently during the day. Appreciate consult from pulmonology. may need BiPAP on discharge. (2) COPD exacerbation Is this a current diagnosis for this admission?: Yes Plan: Continue IV solumedrol, aggressive pulmonary toilet, bronchodilators. Not at her baseline yet. (3) Pneumonia Qualifiers: Pneumonia type: due to unspecified organism Laterality: unspecified laterality Lung location: unspecified part of lung Qualified Code(s): J18.9 - Pneumonia, unspecified organism Is this a current diagnosis for this admission?: Yes Plan: Continue empiric ceftriaxone and azithromycin. Monitor blood culture.
[2018-10-06] MEDS: CLONAZEPAM 1 MG TABLET PO SCH (21:17)
[2018-10-07] MEDS: IPRATROPIUM/ALBUTEROL 0.5-2.5 MG/3 ML AMPUL NEB SCH ×6 (00:30→19:59)
[2018-10-07] MEDS: TEMAZEPAM 7.5 MG CAPSULE PO PRN (03:33)
[2018-10-07] MEDS: METHYLPREDNISOLONE INJ 40 MG/1 ML SDV IV SCH ×2 (03:33→10:20)
[2018-10-07 05:14] LABS: HEMATOCRIT 40.6 % (36.0-47.0); HEMOGLOBIN 13.9 g/dL (12.0-15.5); MEAN CORPUSCULAR HEMOGLOBIN 32.2 pg (27.0-33.4); MEAN CORPUSCULAR HGB CONC 34.3 g/dL (32.0-36.0); MEAN CORPUSCULAR VOLUME 94 fl (80-97); PLATELET COUNT 145 10^3/uL (150-450); RED BLOOD COUNT 4.33 10^6/uL (3.72-5.28); WHITE BLOOD COUNT 8.4 10^3/uL (4.0-10.5)
[2018-10-07 05:39] LABS: ANION GAP 8 (5-19); BLOOD UREA NITROGEN 21 mg/dL (7-20); CALCIUM 8.7 mg/dL (8.4-10.2); CARBON DIOXIDE 34 mmol/L (22-30); CHLORIDE 97 mmol/L (98-107); GLUCOSE 287 mg/dL (75-110); POTASSIUM 4.9 mmol/L (3.6-5.0); SODIUM 138.6 mmol/L (137-145)
[2018-10-07] MEDS: PREGABALIN 100 MG CAPSULE PO SCH ×3 (06:25→21:32)
[2018-10-07 06:28] LABS: ARTERIAL BLOOD BASE EXCESS 7.9 mmol/L; ARTERIAL BLOOD H2CO3 1.79 mmol/L (1.05-1.35); ARTERIAL BLOOD HCO3 35.1 mmol/L (20-24); ARTERIAL BLOOD O2 SATURATION 97.1 % (94-98); ARTERIAL BLOOD PCO2 59.6 mmHg (35-45); ARTERIAL BLOOD PH 7.39 (7.35-7.45); ARTERIAL BLOOD TOTAL CO2 36.9 mmol/L (21-25)
[2018-10-07 06:30] LABS: ARTERIAL BLOOD FIO2 30%
[2018-10-07] MEDS: ACETAMINOPHEN 325 MG TABLET PO PRN (07:10)
[2018-10-07] MEDS: TIOTROPIUM BROMIDE DPI 5 CAP/KIT (18 MCG/CAP) IH SCH (10:21)
[2018-10-07] MEDS: FLUTICASONE/SALMETEROL DISKUS 250-50 MCG/DOSE IH SCH ×2 (10:22→21:33)
[2018-10-07] MEDS: AZITHROMYCIN 250 MG TABLET PO SCH (10:22)
[2018-10-07] MEDS: ROPINIROLE HCL 2 MG TABLET PO SCH ×2 (10:22→21:32)
[2018-10-07] MEDS: ENOXAPARIN SODIUM INJ 40 MG/0.4 ML DISP.SYRIN SUBCUT SCH (10:23)
[2018-10-07] MEDS: CEFTRIAXONE 1 GM/D5W RTU 1 GM/50 ML RTUPB IV SCH (10:58)
--- NOTE | 2018-10-07 11:06 | RADIOLOGY REPORT (SQ) ---
EXAM DESCRIPTION: CHEST 2 VIEWS COMPLETED DATE/TIME: 10/07/2018 10:56 am REASON FOR STUDY: copd COMPARISON: 10/05/2018 EXAM PARAMETERS: NUMBER OF VIEWS: two views TECHNIQUE: Digital Frontal and Lateral radiographic views of the chest acquired. RADIATION DOSE: NA LIMITATIONS: none FINDINGS: LUNGS AND PLEURA: No opacities, masses or pneumothorax. No pleural effusion. MEDIASTINUM AND HILAR STRUCTURES: No masses or contour abnormalities. HEART AND VASCULAR STRUCTURES: Heart normal size. No evidence for failure. BONES: No acute findings. HARDWARE: None in the chest. OTHER: No other significant finding. IMPRESSION: NO ACUTE RADIOGRAPHIC FINDING IN THE CHEST. TECHNICAL DOCUMENTATION: JOB ID: [id number] [employer]- All Rights Reserved Reading location - IP/workstation name: [email or web address]
--- NOTE | 2018-10-07 11:53 | PDOC PROGRESS REPORT ---
Subjective Progress Note for:: 10/07/18 Subjective:: Patient was seen and examined today. on BiPAP. She has been on and off BiPAP. She still does not feel that she is able to go home. still wheezing a lot. Reason For Visit: COPD EXACERBATION Physical Exam Vital Signs: Temp Pulse Resp BP Pulse Ox 97.7 F 93 20 119/57 L 94 10/07/18 08:36 10/07/18 08:36 10/07/18 08:36 10/07/18 08:36 10/07/18 08:36 Intake & Output 10/06/18 10/07/18 10/08/18 06:59 06:59 06:59 Intake Total 968 913 Balance 968 913 Weight 208 lb 5.389 oz 212 lb 8.41 oz General appearance: PRESENT: mild distress, obese Head exam: PRESENT: atraumatic, normocephalic Mouth exam: PRESENT: moist, neck supple, other - candidiasis Neck exam: ABSENT: meningismus, tenderness Respiratory exam: PRESENT: rhonchi, wheezes. ABSENT: accessory muscle use Cardiovascular exam: PRESENT: RRR Pulses: PRESENT: normal radial pulses GI/Abdominal exam: PRESENT: normal bowel sounds, soft Rectal exam: PRESENT: deferred Musculoskeletal exam: PRESENT: ambulatory. ABSENT: deformity Neurological exam: PRESENT: alert, awake, oriented to person, oriented to place, oriented to time, oriented to situation Results Laboratory Results: 10/07/18 04:28 10/07/18 04:28 10/07/18 10/07/18 10/07/18 04:28 04:28 06:20 WBC 8.4 RBC 4.33 Hgb 13.9 Hct 40.6 MCV 94 MCH 32.2 MCHC 34.3 RDW 14.0 Plt Count 145 L Carbonic Acid 1.79 H HCO3/H2CO3 Ratio 19:1 ABG pH 7.39 ABG pCO2 59.6 H ABG pO2 96.0 ABG HCO3 35.1 H ABG O2 Saturation 97.1 ABG Base Excess 7.9 FiO2 30% Sodium 138.6 Potassium 4.9 Chloride 97 L Carbon Dioxide 34 H Anion Gap 8 BUN 21 H Creatinine 0.57 Est GFR ( Amer) > 60 Est GFR (Non-Af Amer) > 60 Glucose 287 H Calcium 8.7 10/01/18 08:33 Blood Blood Culture - Final NO GROWTH IN 5 DAYS 10/01/18 06:05 Blood Blood Culture - Final NO GROWTH IN 5 DAYS 10/01/18 06:05 Troponin I < 0.012 Impressions: Chest CT 10/01/18 00:00 IMPRESSION: 1. Emphysema. Tree-in-bud opacities at the bilateral upper lobes, suggestive of acute infection/ inflammation of the smaller airways such as bronchiolitis or bronchopneumonia. 2. 4.2 x 4.2 cm ascending thoracic aortic aneurysm. Chest X-Ray 10/07/18 06:00 IMPRESSION: NO ACUTE RADIOGRAPHIC FINDING IN THE CHEST. Assessment & Plan - Diagnosis (1) Acute respiratory failure with hypercapnia Is this a current diagnosis for this admission?: Yes Plan: Trial of AVAPS (2) COPD exacerbation Is this a current diagnosis for this admission?: Yes Plan: Switch IV solumedrol to oral prednisone. Continue aggressive pulmonary toilet, bronchodilators. Not at her baseline yet. Trial of AVAPS (3) Pneumonia Qualifiers: Pneumonia type: due to unspecified organism Laterality: unspecified laterality Lung location: unspecified part of lung Qualified Code(s): J18.9 - Pneumonia, unspecified organism Is this a current diagnosis for this admission?: Yes Plan: Continue empiric ceftriaxone and azithromycin. Negative blood culture.
[2018-10-07] MEDS: GUAIFENESIN 600 MG TABLET.SA PO SCH ×2 (13:49→21:32)
[2018-10-07] MEDS: NYSTATIN 500000 UNIT/5 ML UDCUP PO SCH ×3 (13:50→21:32)
[2018-10-07] MEDS: PREDNISONE 20 MG TABLET PO SCH (13:50)
[2018-10-07] MEDS: LANSOPRAZOLE 30 MG TAB.RAP.DR PO SCH (13:55)
[2018-10-07 16:56] LABS: POTASSIUM 4.4 mmol/L (3.6-5.0)
[2018-10-07 17:13] LABS: CREATINE KINASE MB 2.02 ng/mL (<4.55); TROPONIN I < 0.012 ng/mL
--- NOTE | 2018-10-07 17:15 | EKG REPORT ---
SEVERITY:- BORDERLINE ECG - SINUS RHYTHM VENTRICULAR PREMATURE COMPLEX PROBABLE LEFT ATRIAL ABNORMALITY : Confirmed by: Pio Hassan MD 07-Oct-2018 17:14:58
--- NOTE | 2018-10-07 19:22 | PROGRESS NOTE E ---
Progress Note NAME: ALISA HIRSCH : 1965 AGE: 52Y DATE: 10/07/2018 ROOM: 309 SUBJECTIVE: The patient is a 52-year-old female who came with severe COPD exacerbation, increased cough with purulent sputum production. Started on Rocephin and azithromycin and still was noted to be wheezing this morning per hospitalist's note. Stated she had some blood thick phlegm. The patient's nurse stated that she checked the patient's sputum collection but there was no blood in it. There is no fever or chills. No nausea, vomiting, diarrhea. OBJECTIVE: GENERAL: The patient is awake, alert, coherent, oriented x3. VITAL SIGNS: Temperature of 97.5, heart rate 51, blood pressure is 152/76, saturation is 96 on 3 liters nasal cannula. EYES: No jaundice or pallor. EARS, NOSE, AND THROAT: No ear drainage. No nasal discharge. CHEST AND LUNGS: No wheezing, no rhonchi, no coarse crackles. CARDIOVASCULAR: S1, S2 distinct. Normal rate and regular rhythm. ABDOMEN: Flabby, positive bowel sounds, soft, nondistended, nontender. EXTREMITIES: No joint swelling, no cellulitis. LABORATORY DATA: CBC done today showed a white count of 8.4, hemoglobin is 13.9, hematocrit is 40.6, and platelet count is 145. ABG done today showed pH of 7.39, pCO2 of 59.6, pO2 is 96, and bicarb is 35.1 and ABG oxygen saturation is 97.1. Chemistry done today showed sodium is 138, potassium is 4.9, chloride 97, CO2 is 34, BUN is 31, creatinine 0.57, glucose 287, calcium is 8.7. ASSESSMENT: 1. COPD/BRONCHIAL ASTHMA IN ACUTE SEVERE EXACERBATION. Currently stable. Appeared not to be in bronchospasm. 2. SEVERE ANXIETY REACTION. 3. BRONCHITIS. PNEUMONIA COULD NOT BE COMPLETELY EXCLUDED. PLAN/RECOMMENDATION: 1. The patient will be able to go home on Levaquin 500 mg tablet p.o. daily for the next 7 to 10 days. 2. Will continue prednisone taper every 2 to 3 days to wean off. 3. Recommend pulmonary clinic follow up in 2 weeks or 3 weeks following hospital discharge. 4. Continue the patient's Advair 250 DiskHaler one puff daily and Spiriva one capsule daily. We will sign off today. If you have any questions please feel free to call me. DICTATING PHYSICIAN: RAMONA SHANE MD,DAVID,MPH [id number] PHY#: [id number] ID: [id number] JOB#: [id number] ACCT: [id number] cc: > MTDD
--- NOTE | 2018-10-07 21:19 | XCELERA REPORT ---
[address] [address] Transthoracic Echocardiogram Report Name: ALISA HIRSCH Age: 52 yrs Gender: Female : 1965 Patient Status: Inpatient Patient Location: [facility]^A Study Date: 10/07/2018 07:11 PM Height: 59 in Weight: 212 lb BSA: 1.9 m2 Procedure: A two-dimensional transthoracic echocardiogram with color flow and Doppler was performed. Study Quality: Poor. The study was technically difficult with many images being suboptimal in quality. Reason For Study: Chest Pain, Bigeminy History: Chest pain. Ordering Physician: NKECHI PUENTE Performed By: Galo Davis Interpretation Summary The left ventricle is normal in size. There is normal left ventricular wall thickness. LV EF is 65% The left ventricular ejection fraction is normal. Doppler measurements suggest normal left ventricular diastolic function Probably no regional wall motion abnormalities. There is no evidence of mitral valve prolapse. There is no mitral valve stenosis. There is a trace amount of mitral regurgitation There is no aortic valve stenosis No aortic regurgitation is present. There is no tricuspid stenosis. There is a trace amount of tricuspid regurgitation Unable to calculate RVSP due lack of TR jet. There is no pericardial effusion. MMode/2D Measurements & Calculations RVDd: 3.2 cm LVIDd: 5.2 cm FS: 33.6 % Ao root diam: 3.3 cm IVSd: 0.81 cm LVIDs: 3.5 cm EDV(Teich): 129.4 ml Ao root area: 8.7 cm2 LVPWd: 0.95 cm ESV(Teich): 49.2 ml LA dimension: 2.3 cm EF(Teich): 62.0 % LVOT diam: 1.6 cm LVOT area: 2.0 cm2 Doppler Measurements & Calculations MV E max marya: MV P1/2t max marya: Ao V2 max: LV V1 max P.8 cm/sec 109.4 cm/sec 171.4 cm/sec 5.8 mmHg MV A max marya: MV P1/2t: 51.9 msec Ao max PG: LV V1 max: 80.0 cm/sec MVA(P1/2t): 4.2 cm2 11.8 mmHg 119.9 cm/sec MV E/A: 1.1 MV dec slope: DEMI(V,D): 1.4 cm2 616.8 cm/sec2 MV dec time: 0.19 sec PA V2 max: MV P1/2t-pr_phl: 120.8 cm/sec 51.9 msec PA max P.8 mmHg Left Ventricle The left ventricle is normal in size. There is normal left ventricular wall thickness. LV EF is 65%. The left ventricular ejection fraction is normal. Doppler measurements suggest normal left ventricular diastolic function. Regional wall motion abnormalities cannot be excluded due to limited visualization. Probably no regional wall motion abnormalities. Right Ventricle The right ventricle is not well visualized secondary to technical limitations. Atria Right atrium not well visualized secondary to technical limitations. The left atrial size is normal. Mitral Valve There is no evidence of mitral valve prolapse. There is no mitral valve stenosis. There is a trace amount of mitral regurgitation. Aortic Valve There is no aortic valve stenosis. No aortic regurgitation is present. Tricuspid Valve There is no tricuspid stenosis. There is a trace amount of tricuspid regurgitation. Unable to calculate RVSP due lack of TR jet. Pulmonic Valve The pulmonic valve is not well visualized. Great Vessels The aortic root is not well visualized. Effusions There is no pericardial effusion. : NKECHI PUENTE > Nallely Castaneda
[2018-10-07] MEDS: CLONAZEPAM 1 MG TABLET PO SCH (21:32)
[2018-10-08] MEDS: IPRATROPIUM/ALBUTEROL 0.5-2.5 MG/3 ML AMPUL NEB SCH ×6 (00:31→19:58)
[2018-10-08] MEDS: PREGABALIN 100 MG CAPSULE PO SCH ×3 (05:27→21:51)
[2018-10-08] MEDS: LANSOPRAZOLE 30 MG TAB.RAP.DR PO SCH (05:27)
[2018-10-08] MEDS: ROPINIROLE HCL 2 MG TABLET PO SCH ×2 (11:02→21:52)
[2018-10-08] MEDS: GUAIFENESIN 600 MG TABLET.SA PO SCH ×2 (11:02→21:52)
[2018-10-08] MEDS: AZITHROMYCIN 250 MG TABLET PO SCH (11:02)
[2018-10-08] MEDS: ENOXAPARIN SODIUM INJ 40 MG/0.4 ML DISP.SYRIN SUBCUT SCH (11:02)
[2018-10-08] MEDS: NYSTATIN 500000 UNIT/5 ML UDCUP PO SCH ×4 (11:02→21:52)
[2018-10-08] MEDS: PREDNISONE 20 MG TABLET PO SCH (11:02)
[2018-10-08] MEDS: FLUTICASONE/SALMETEROL DISKUS 250-50 MCG/DOSE IH SCH ×2 (11:03→21:52)
[2018-10-08] MEDS: TIOTROPIUM BROMIDE DPI 5 CAP/KIT (18 MCG/CAP) IH SCH (11:03)
--- NOTE | 2018-10-08 12:28 | PDOC PROGRESS REPORT ---
Subjective Progress Note for:: 10/08/18 Subjective:: Patient was seen and examined today. Patient is off BiPAP. She is on nasal cannula oxygen. She was sitting eating breakfast and appears in no distress. She has been on and off BiPAP. She still does not feel that she is able to go home. Reason For Visit: COPD EXACERBATION Physical Exam Vital Signs: Temp Pulse Resp BP Pulse Ox 97.5 F 89 20 146/61 H 93 10/08/18 07:30 10/08/18 11:41 10/08/18 11:55 10/08/18 07:30 10/08/18 11:55 Intake & Output 10/07/18 10/08/18 10/09/18 06:59 06:59 06:59 Intake Total 913 1304 Balance 913 1304 Weight 212 lb 8.41 oz 213 lb 6.519 oz General appearance: PRESENT: no acute distress, cooperative, obese Head exam: PRESENT: atraumatic, normocephalic Eye exam: PRESENT: EOMI Mouth exam: PRESENT: moist, neck supple Neck exam: ABSENT: meningismus, tenderness Respiratory exam: PRESENT: clear to auscultation holden. ABSENT: accessory muscle use Cardiovascular exam: PRESENT: RRR Pulses: PRESENT: normal radial pulses GI/Abdominal exam: PRESENT: normal bowel sounds, soft Rectal exam: PRESENT: deferred Musculoskeletal exam: ABSENT: deformity Neurological exam: PRESENT: alert, awake, oriented to person, oriented to place, oriented to time, oriented to situation Psychiatric exam: PRESENT: anxious Results Laboratory Results: 10/07/18 04:28 10/07/18 16:30 10/07/18 16:30 Potassium 4.4 Magnesium 2.3 10/01/18 10/07/18 10/07/18 06:05 16:30 16:30 Creatine Kinase 52 CK-MB (CK-2) 2.02 Troponin I < 0.012 < 0.012 10/07/18 10/08/18 10/08/18 22:15 04:34 10:22 Creatine Kinase CK-MB (CK-2) Troponin I < 0.012 < 0.012 < 0.012 Impressions: Chest CT 10/01/18 00:00 IMPRESSION: 1. Emphysema. Tree-in-bud opacities at the bilateral upper lobes, suggestive of acute infection/ inflammation of the smaller airways such as bronchiolitis or bronchopneumonia. 2. 4.2 x 4.2 cm ascending thoracic aortic aneurysm. Chest X-Ray 10/07/18 06:00 IMPRESSION: NO ACUTE RADIOGRAPHIC FINDING IN THE CHEST. Assessment & Plan - Diagnosis (1) Acute respiratory failure with hypercapnia Is this a current diagnosis for this admission?: Yes Plan: Trial of AVAPS. She is currently on nasal cannula oxygen chronically. She uses BiPAP when she sleeps. (2) COPD exacerbation Is this a current diagnosis for this admission?: Yes Plan: Switched IV solumedrol to oral prednisone. Continue aggressive pulmonary toilet, bronchodilators. Not at her baseline yet. We ask for an evaluation for outpatient AVAPS (3) Pneumonia Qualifiers: Pneumonia type: due to unspecified organism Laterality: unspecified laterality Lung location: unspecified part of lung Qualified Code(s): J18.9 - Pneumonia, unspecified organism Is this a current diagnosis for this admission?: Yes Plan: Patient finished a course of empiric ceftriaxone and azithromycin. Negative blood culture. - Plan Summary Plan Summary: Possible discharge in 1-2 days.
[2018-10-08] MEDS: CLONAZEPAM 1 MG TABLET PO SCH (21:52)
[2018-10-09] MEDS: IPRATROPIUM/ALBUTEROL 0.5-2.5 MG/3 ML AMPUL NEB SCH ×3 (00:18→08:04)
[2018-10-09] MEDS: PREGABALIN 100 MG CAPSULE PO SCH ×3 (05:23→21:06)
[2018-10-09] MEDS: ACETAMINOPHEN 325 MG TABLET PO PRN (05:23)
[2018-10-09] MEDS: LANSOPRAZOLE 30 MG TAB.RAP.DR PO SCH (05:24)
--- NOTE | 2018-10-09 09:07 | PDOC PROGRESS REPORT ---
Subjective Progress Note for:: 10/09/18 Subjective:: Patient very anxious stating she is feeling like she is getting sick again, she is coughing since she was started on mucolytic's. Used BiPAP currently overnight and on 2 L of supplemental oxygen. Uses home oxygen 2 L and uses CPAP at home which she makes states that she still makes her very anxious. She is also very emotional about her having stage IV pancreatic cancer who is living at home. P.o. tolerant, having normal bowel and bladder movements, ambulatory with oxygen. Denies any fever, chills, nausea, vomiting, diarrhea, constipation or any urinary symptoms. Reason For Visit: COPD EXACERBATION Physical Exam Vital Signs: Temp Pulse Resp BP Pulse Ox 97.6 F 79 18 131/69 H 97 10/09/18 07:53 10/09/18 07:53 10/09/18 07:53 10/09/18 07:53 10/09/18 07:53 Intake & Output 10/08/18 10/09/18 10/10/18 06:59 06:59 06:59 Intake Total 1304 1291 Balance 1304 1291 Weight 96.8 kg 95.4 kg General appearance: PRESENT: no acute distress, well-developed, well-nourished Head exam: PRESENT: atraumatic, normocephalic Respiratory exam: PRESENT: clear to auscultation holden. ABSENT: rales, rhonchi, wheezes Cardiovascular exam: PRESENT: RRR. ABSENT: diastolic murmur, rubs, systolic murmur GI/Abdominal exam: PRESENT: normal bowel sounds, soft. ABSENT: distended, guarding, mass, organolmegaly, rebound, tenderness Neurological exam: PRESENT: alert, awake, oriented to person, oriented to place, oriented to time, oriented to situation, CN II-XII grossly intact. ABSENT: m otor sensory deficit Psychiatric exam: PRESENT: anxious Skin exam: PRESENT: dry, intact, warm. ABSENT: cyanosis, rash Results Laboratory Results: 10/07/18 04:28 10/07/18 16:30 10/01/18 10/07/18 10/07/18 06:05 16:30 16:30 Creatine Kinase 52 CK-MB (CK-2) 2.02 Troponin I < 0.012 < 0.012 10/07/18 10/08/18 10/08/18 22:15 04:34 10:22 Creatine Kinase CK-MB (CK-2) Troponin I < 0.012 < 0.012 < 0.012 Impressions: Chest CT 10/01/18 00:00 IMPRESSION: 1. Emphysema. Tree-in-bud opacities at the bilateral upper lobes, suggestive of acute infection/ inflammation of the smaller airways such as bronchiolitis or bronchopneumonia. 2. 4.2 x 4.2 cm ascending thoracic aortic aneurysm. Chest X-Ray 10/07/18 06:00 IMPRESSION: NO ACUTE RADIOGRAPHIC FINDING IN THE CHEST. Assessment & Plan - Diagnosis (1) Acute respiratory failure with hypercapnia Is this a current diagnosis for this admission?: Yes Plan: Improving. Currently saturating in the 90s on 2 L supplemental oxygen. Nocturnal BiPAP. Tolerating well. Switch DuoNeb to Xopenex and ipratropium nebs. decrease prednisone from 40-20 mg daily. Day 8 of steroids. Consider stopping tomorrow. Continue Spiriva daily, Advair twice daily. Outpatient pulmonary and PCP follow-up. (2) COPD exacerbation Is this a current diagnosis for this admission?: Yes Plan: Per problem #1. (3) Morbid obesity with BMI of 40.0-44.9, adult Is this a current diagnosis for this admission?: Yes Plan: Diet and start modification. (4) JOSE on CPAP Is this a current diagnosis for this admission?: Yes Plan: Uses CPAP at home. Sees Dr. Cook as outpatient. (5) Pneumonia Qualifiers: Pneumonia type: due to unspecified organism Laterality: unspecified laterality Lung location: unspecified part of lung Qualified Code(s): J18.9 - Pneumonia, unspecified organism Is this a current diagnosis for this admission?: Yes Plan: Cultures negative. Completed a course of empiric ceftriaxone and azithromycin. Continue monitoring vitals. (6) Anxiety, generalized Is this a current diagnosis for this admission?: Yes Plan: Start on BuSpar. Follow-up with PCP.
[2018-10-09] MEDS: GUAIFENESIN 600 MG TABLET.SA PO SCH ×2 (09:56→21:06)
[2018-10-09] MEDS: NYSTATIN 500000 UNIT/5 ML UDCUP PO SCH ×4 (09:57→21:12)
[2018-10-09] MEDS: PREDNISONE 20 MG TABLET PO SCH (09:57)
[2018-10-09] MEDS: ROPINIROLE HCL 2 MG TABLET PO SCH ×2 (09:57→21:07)
[2018-10-09] MEDS: BUSPIRONE HCL 10 MG TABLET PO SCH ×2 (09:57→21:06)
[2018-10-09] MEDS: FLUTICASONE/SALMETEROL DISKUS 250-50 MCG/DOSE IH SCH ×2 (09:57→21:07)
[2018-10-09] MEDS: TIOTROPIUM BROMIDE DPI 5 CAP/KIT (18 MCG/CAP) IH SCH (09:57)
[2018-10-09] MEDS: ENOXAPARIN SODIUM INJ 40 MG/0.4 ML DISP.SYRIN SUBCUT SCH (09:58)
[2018-10-09] MEDS: LEVALBUTEROL HCL NEB 1.25 MG/3 ML AMPUL NEB SCH ×4 (11:37→23:50)
[2018-10-09] MEDS: IPRATROPIUM BROMIDE 0.02% NEB 0.5 MG/2.5 ML AMPUL NEB SCH ×4 (11:37→23:50)
[2018-10-09] MEDS: CLONAZEPAM 1 MG TABLET PO SCH (21:06)
[2018-10-10] MEDS: TEMAZEPAM 7.5 MG CAPSULE PO PRN (03:43)
[2018-10-10] MEDS: LEVALBUTEROL HCL NEB 1.25 MG/3 ML AMPUL NEB SCH ×6 (03:52→23:51)
[2018-10-10] MEDS: IPRATROPIUM BROMIDE 0.02% NEB 0.5 MG/2.5 ML AMPUL NEB SCH ×6 (03:52→23:51)
[2018-10-10] MEDS: LANSOPRAZOLE 30 MG TAB.RAP.DR PO SCH (05:11)
[2018-10-10] MEDS: PREGABALIN 100 MG CAPSULE PO SCH ×3 (05:11→21:07)
[2018-10-10 05:13] LABS: HEMATOCRIT 42.4 % (36.0-47.0); HEMOGLOBIN 14.3 g/dL (12.0-15.5); MEAN CORPUSCULAR HEMOGLOBIN 31.7 pg (27.0-33.4); MEAN CORPUSCULAR HGB CONC 33.8 g/dL (32.0-36.0); MEAN CORPUSCULAR VOLUME 94 fl (80-97); PLATELET COUNT 147 10^3/uL (150-450); RED BLOOD COUNT 4.52 10^6/uL (3.72-5.28); RED CELL DISTRIBUTION WIDTH 14.4 % (11.5-14.0); WHITE BLOOD COUNT 12.2 10^3/uL (4.0-10.5)
[2018-10-10 05:32] LABS: ALANINE AMINOTRANSFERASE 40 U/L (9-52); ALBUMIN 3.5 g/dL (3.5-5.0); ALKALINE PHOSPHATASE 55 U/L (38-126); ANION GAP 10 (5-19); ASPARTATE AMINO TRANSFERASE 16 U/L (14-36); BILIRUBIN,DIRECT 0.3 mg/dL (0.0-0.4); BILIRUBIN,TOTAL 0.4 mg/dL (0.2-1.3); BLOOD UREA NITROGEN 20 mg/dL (7-20); CALCIUM 8.6 mg/dL (8.4-10.2); CARBON DIOXIDE 31 mmol/L (22-30); CHLORIDE 100 mmol/L (98-107); GLUCOSE 179 mg/dL (75-110); POTASSIUM 4.1 mmol/L (3.6-5.0); SODIUM 140.5 mmol/L (137-145); TOTAL PROTEIN 5.8 g/dL (6.3-8.2)
[2018-10-10 05:38] LABS: ABSOLUTE LYMPHOCYTES# (MANUAL) 3.8 10^3/uL (0.5-4.7); ABSOLUTE MONOCYTES # (MANUAL) 1.6 10^3/uL (0.1-1.4); ABSOLUTE NEUTROPHILS# (MANUAL) 6.8 10^3/uL (1.7-8.2); BASOPHILS % (MANUAL) 0 % (0-2); EOSINOPHILS % (MANUAL) 0 % (0-6); LYMPHOCYTES % (MANUAL) 31 % (13-45); MONOCYTES % (MANUAL) 13 % (3-13); PLATELET COMMENT ADEQUATE; RBC MORPHOLOGY COMMENT NORMO-CYTIC/CHROMIC; SEGMENTED NEUTROPHILS % (MAN) 56 % (42-78); TOTAL CELLS COUNTED 100
[2018-10-10] MEDS: ENOXAPARIN SODIUM INJ 40 MG/0.4 ML DISP.SYRIN SUBCUT SCH (09:20)
[2018-10-10] MEDS: PREDNISONE 20 MG TABLET PO SCH (09:21)
[2018-10-10] MEDS: GUAIFENESIN 600 MG TABLET.SA PO SCH ×2 (09:21→21:07)
[2018-10-10] MEDS: BUSPIRONE HCL 10 MG TABLET PO SCH ×2 (09:21→21:07)
[2018-10-10] MEDS: ROPINIROLE HCL 2 MG TABLET PO SCH ×2 (09:22→21:07)
[2018-10-10] MEDS: TIOTROPIUM BROMIDE DPI 5 CAP/KIT (18 MCG/CAP) IH SCH (09:23)
[2018-10-10] MEDS: FLUTICASONE/SALMETEROL DISKUS 250-50 MCG/DOSE IH SCH ×2 (09:27→21:06)
[2018-10-10] MEDS: NYSTATIN 500000 UNIT/5 ML UDCUP PO SCH ×4 (09:28→21:07)
--- NOTE | 2018-10-10 14:15 | PDOC PROGRESS REPORT ---
Subjective Progress Note for:: 10/10/18 Subjective:: No acute events overnight. Patient is less anxious today. Stating she is feeling much better and back to baseline. Cough has improved, Used BiPAP currently overnight and on 2 L of supplemental oxygen. Uses home oxygen 2 L and uses CPAP at home which she makes states that she still makes her very anxious. She is also very emotional about her having stage IV pancreatic cancer who is living at home. She she mentions she feels depressed and suffers from chronic insomnia also has a history of depression when she was younger and she was treated with SSRIs. Not getting any treatment for her underlying depression. Denies any suicidal or homicidal ideation. P.o. tolerant, having normal bowel and bladder movements, ambulatory with oxygen. Denies any fever, chills, nausea, vomiting, diarrhea, constipation or any urinary symptoms. Reason For Visit: COPD EXACERBATION Physical Exam Vital Signs: Temp Pulse Resp BP Pulse Ox 97.4 F 72 16 111/64 95 10/10/18 11:28 10/10/18 11:31 10/10/18 11:31 10/10/18 11:28 10/10/18 11:31 Intake & Output 10/09/18 10/10/18 10/11/18 06:59 06:59 06:59 Intake Total 1291 Balance 1291 Weight 95.4 kg 96.2 kg General appearance: PRESENT: no acute distress, well-developed, well-nourished Head exam: PRESENT: atraumatic, normocephalic Neck exam: ABSENT: carotid bruit, JVD, lymphadenopathy, thyromegaly Respiratory exam: PRESENT: clear to auscultation holden. ABSENT: rales, rhonchi, wheezes Cardiovascular exam: PRESENT: RRR. ABSENT: diastolic murmur, rubs, systolic murmur GI/Abdominal exam: PRESENT: normal bowel sounds, soft. ABSENT: distended, guarding, mass, organolmegaly, rebound, tenderness Extremities exam: PRESENT: full ROM. ABSENT: calf tenderness, clubbing, pedal edema Neurological exam: PRESENT: alert, awake, oriented to person, oriented to place, oriented to time, oriented to situation, CN II-XII grossly intact. ABSENT: motor sensory deficit Psychiatric exam: PRESENT: anxious Results Laboratory Results: 10/10/18 04:31 10/10/18 04:31 10/10/18 10/10/18 04:31 04:31 WBC 12.2 H RBC 4.52 Hgb 14.3 Hct 42.4 MCV 94 MCH 31.7 MCHC 33.8 RDW 14.4 H Plt Count 147 L Seg Neutrophils % Not Reportable Lymphocytes % Not Reportable Monocytes % Not Reportable Eosinophils % Not Reportable Basophils % Not Reportable Absolute Neutrophils Not Reportable Absolute Lymphocytes Not Reportable Absolute Monocytes Not Reportable Absolute Eosinophils Not Reportable Absolute Basophils Not Reportable Sodium 140.5 Potassium 4.1 Chloride 100 Carbon Dioxide 31 H Anion Gap 10 BUN 20 Creatinine 0.53 Est GFR ( Amer) > 60 Est GFR (Non-Af Amer) > 60 Glucose 179 H Calcium 8.6 Magnesium 2.4 H Total Bilirubin 0.4 AST 16 ALT 40 Alkaline Phosphatase 55 Total Protein 5.8 L Albumin 3.5 10/01/18 10/07/18 10/07/18 06:05 16:30 16:30 Creatine Kinase 52 CK-MB (CK-2) 2.02 Troponin I < 0.012 < 0.012 10/07/18 10/08/18 10/08/18 22:15 04:34 10:22 Creatine Kinase CK-MB (CK-2) Troponin I < 0.012 < 0.012 < 0.012 Impressions: Chest CT 10/01/18 00:00 IMPRESSION: 1. Emphysema. Tree-in-bud opacities at the bilateral upper lobes, suggestive of acute infection/ inflammation of the smaller airways such as bronchiolitis or bronchopneumonia. 2. 4.2 x 4.2 cm ascending thoracic aortic aneurysm. Chest X-Ray 10/07/18 06:00 IMPRESSION: NO ACUTE RADIOGRAPHIC FINDING IN THE CHEST. Assessment & Plan - Diagnosis (1) Acute respiratory failure with hypercapnia Is this a current diagnosis for this admission?: Yes Plan: Improving. Plan to discharge tomorrow. Currently saturating in the 90s on 2 L supplemental oxygen. Nocturnal BiPAP. Tolerating well. Switch DuoNeb to Xopenex and ipratropium nebs. DC steroids today. Received 8 days of total steroids. Continue Spiriva daily, Advair twice daily. Outpatient pulmonary and PCP follow-up. Sees Dr. Cook as outpatient. (2) COPD exacerbation Is this a current diagnosis for this admission?: Yes Plan: Per problem #1. (3) Morbid obesity with BMI of 40.0-44.9, adult Is this a current diagnosis for this admission?: Yes Plan: Diet and start modification. (4) JOSE on CPAP Is this a current diagnosis for this admission?: Yes Plan: Uses CPAP at home. Sees Dr. Cook as outpatient. (5) Pneumonia Qualifiers: Pneumonia type: due to unspecified organism Laterality: unspecified laterality Lung location: unspecified part of lung Qualified Code(s): J18.9 - Pneumonia, unspecified organism Is this a current diagnosis for this admission?: Yes Plan: Cultures negative. Completed a course of empiric ceftriaxone and azithromycin. Continue monitoring vitals. (6) Anxiety, generalized Is this a current diagnosis for this admission?: Yes Plan: Much improved. Start on BuSpar. Follow-up with PCP. (7) Chronic depression Is this a current diagnosis for this admission?: Yes Plan: Start on fluoxetine. PCP follow-up.
[2018-10-10] MEDS: FLUOXETINE HCL 20 MG CAPSULE PO SCH (14:49)
[2018-10-10] MEDS: CLONAZEPAM 1 MG TABLET PO SCH (21:07)
[2018-10-11] MEDS: IPRATROPIUM BROMIDE 0.02% NEB 0.5 MG/2.5 ML AMPUL NEB SCH ×2 (03:35→07:57)
[2018-10-11] MEDS: LEVALBUTEROL HCL NEB 1.25 MG/3 ML AMPUL NEB SCH ×2 (03:35→07:57)
[2018-10-11] MEDS: ACETAMINOPHEN 325 MG TABLET PO PRN (04:10)
[2018-10-11] MEDS: TEMAZEPAM 7.5 MG CAPSULE PO PRN (04:10)
[2018-10-11] MEDS: LANSOPRAZOLE 30 MG TAB.RAP.DR PO SCH (05:20)
[2018-10-11] MEDS: PREGABALIN 100 MG CAPSULE PO SCH (05:20)
[2018-10-11 06:39] LABS: ALANINE AMINOTRANSFERASE 36 U/L (9-52); ALBUMIN 3.5 g/dL (3.5-5.0); ALKALINE PHOSPHATASE 54 U/L (38-126); ANION GAP 12 (5-19); ASPARTATE AMINO TRANSFERASE 16 U/L (14-36); BILIRUBIN,DIRECT 0.2 mg/dL (0.0-0.4); BILIRUBIN,TOTAL 0.4 mg/dL (0.2-1.3); BLOOD UREA NITROGEN 23 mg/dL (7-20); CALCIUM 8.5 mg/dL (8.4-10.2); CARBON DIOXIDE 27 mmol/L (22-30); CHLORIDE 100 mmol/L (98-107); GLUCOSE 190 mg/dL (75-110); SODIUM 139.4 mmol/L (137-145); TOTAL PROTEIN 5.5 g/dL (6.3-8.2)
[2018-10-11] MEDS: BUSPIRONE HCL 10 MG TABLET PO SCH (09:48)
[2018-10-11] MEDS: FLUTICASONE/SALMETEROL DISKUS 250-50 MCG/DOSE IH SCH (09:49)
[2018-10-11] MEDS: GUAIFENESIN 600 MG TABLET.SA PO SCH (09:49)
[2018-10-11] MEDS: TIOTROPIUM BROMIDE DPI 5 CAP/KIT (18 MCG/CAP) IH SCH (09:49)
[2018-10-11] MEDS: ROPINIROLE HCL 2 MG TABLET PO SCH (09:49)
[2018-10-11] MEDS: FLUOXETINE HCL 20 MG CAPSULE PO SCH (09:49)
[2018-10-11] MEDS: ENOXAPARIN SODIUM INJ 40 MG/0.4 ML DISP.SYRIN SUBCUT SCH (09:49)
[2018-10-11] MEDS: NYSTATIN 500000 UNIT/5 ML UDCUP PO SCH (09:50)
[2018-10-11 10:08] VITALS: BP 158/76
--- NOTE | 2018-10-11 12:27 | PDOC DISCHARGE SUMMARY ---
General - Admit/Disc Date/PCP Admission Date/Primary Care Provider: 10/01/18 10:12 Discharge Date: 10/11/18 - Discharge Diagnosis (1) Acute respiratory failure with hypercapnia Is this a current diagnosis for this admission?: Yes (2) COPD exacerbation Is this a current diagnosis for this admission?: Yes (3) Morbid obesity with BMI of 40.0-44.9, adult Is this a current diagnosis for this admission?: Yes (4) JOSE on CPAP Is this a current diagnosis for this admission?: Yes (5) Pneumonia Is this a current diagnosis for this admission?: Yes (6) Anxiety, generalized Is this a current diagnosis for this admission?: Yes (7) Chronic depression Is this a current diagnosis for this admission?: Yes - Additional Information Discharge Diet: As Tolerated Discharge Activity: Activity As Tolerated Prescriptions: Albuterol Sulfate [Proair HFA Inhalation Aerosol 8.5 gm MDI] 2 puff IH Q2HP PRN 30 Days #5 [email or web address] PRN Reason: Buspirone HCl [Buspar 10 mg Tablet] 10 mg PO Q12 30 Days #60 tablet Fluoxetine HCl [Prozac 20 mg Capsule] 20 mg PO DAILY 30 Days #30 capsule Fluticasone/Salmeterol [Advair 250-50 Diskus 14 Dose/Diskus] 1 inh IH Q12 30 Days #3 inhaler Home Medications: Albuterol Sulfate [Proair HFA Inhalation Aerosol 8.5 gm MDI] 2 puff IH Q6HP PRN 10/01/18 Ascorbic Acid [Vitamin C 500 mg Tablet] 500 mg PO DAILY 10/01/18 Calcium Carbonate/Vitamin D3 [Os-Nguyễn 250 mg with Vitamin D 125 Units] 2 tab PO DAILY 10/01/18 Cholecalciferol (Vitamin D3) [Vitamin D3 1000 Unit Tablet] 1,000 unit PO DAILY 10/01/18 Clonazepam [Klonopin] 0.5 mg PO QHS 10/01/18 Flu Vacc [id number](6Mos Up)/Pf [Fluarix Quad 2954-9803 Syringe] 0.5 ml IM .RE CEIVED 06/01/18 MDD 06/01/18 10/01/18 Fluticasone/Salmeterol [Advair 250-50 Diskus 14 Dose/Diskus] 1 inh IH Q12 10/01/18 Folic Acid [Folvite 1 mg Tablet] 1 mg PO DAILY 10/01/18 Loratadine [Claritin 10 mg Tablet] 10 mg PO DAILY 10/01/18 Multivitamin [Tab-A-Foster (Multiple Vitamin) Tablet] 1 tab PO DAILY 10/01/18 Pregabalin [Lyrica 100 mg Capsule] 200 mg PO Q8 10/01/18 Ropinirole HCl [Requip 2 mg Tablet] 2 mg PO Q12 10/01/18 Tiotropium [place] [Spiriva Respimat] 2 puff IH DAILY 10/01/18 Vitamin B Complex [B Complex] 1 each PO DAILY 10/01/18 Albuterol Sulfate [Proair HFA Inhalation Aerosol 8.5 gm MDI] 2 puff IH Q2HP PRN 30 Days #5 hfa.aer.ad 10/11/18 Buspirone HCl [Buspar 10 mg Tablet] 10 mg PO Q12 30 Days #60 tablet 10/11/18 Fluoxetine HCl [Prozac 20 mg Capsule] 20 mg PO DAILY 30 Days #30 capsule 10/11/18 Fluticasone/Salmeterol [Advair 250-50 Diskus 14 Dose/Diskus] 1 inh IH Q12 30 Days #3 inhaler 10/11/18 History of Present Illness History of Present Illness: ALISA TRAN is a 52 year old female with h/o COPD who is active smoker. she presents with acute onset SOB started 3 days ago associated with fever (max 102), cough and wheezing. CXR in ER + pneumonia. she was hypercapnic and was started on Bipap. Hospital Course Hospital Course: (1) Acute respiratory failure with hypercapnia Improved. Currently saturating in the 96% on 2 L supplemental oxygen. Nocturnal BiPAP. Continue home supplemental O2. Started on DuoNeb to Xopenex and ipratropium nebs. Received 8 days of total steroids. Was advised to continue Spiriva daily, Advair twice daily. Outpatient pulmonary and PCP follow-up Sees Dr. Cook as outpatient. (2) COPD exacerbation Per problem #1. (3) Morbid obesity with BMI of 40.0-44.9, adult Diet and start modification. (4) JOSE on CPAP Uses CPAP at home. Sees Dr. Cook as outpatient. (5) Pneumonia Cultures negative. Completed a course of empiric ceftriaxone and azithromycin. (6) Anxiety, generalized Much improved. Start on BuSpar. Follow-up with PCP. (7) Chronic depression Start on fluoxetine. PCP follow-up. Physical Exam Vital Signs: Temp Pulse Resp BP Pulse Ox 98.1 F 100 20 158/76 H 96 10/11/18 10:07 10/11/18 10:07 10/11/18 10:07 10/11/18 10:07 10/11/18 10:07 Intake & Output 10/10/18 10/11/18 10/12/18 06:59 06:59 06:59 Intake Total 300 Output Total 1950 Balance -1650 Weight 96.2 kg 96.9 kg General appearance: PRESENT: no acute distress, well-developed, well-nourished Head exam: PRESENT: atraumatic, normocephalic Respiratory exam: PRESENT: clear to auscultation holden. ABSENT: rales, rhonchi, wheezes Cardiovascular exam: PRESENT: RRR. ABSENT: diastolic murmur, rubs, systolic murmur GI/Abdominal exam: PRESENT: normal bowel sounds, soft. ABSENT: distended, guarding, mass, organolmegaly, rebound, tenderness Neurological exam: PRESENT: alert, awake, oriented to person, oriented to place, oriented to time, oriented to situation, CN II-XII grossly intact. ABSENT: motor sensory deficit Results Laboratory Results: 10/10/18 04:31 10/11/18 05:05 10/11/18 05:05 Sodium 139.4 Potassium 4.0 Chloride 100 Carbon Dioxide 27 Anion Gap 12 BUN 23 H Creatinine 0.62 Est GFR ( Amer) > 60 Est GFR (Non-Af Amer) > 60 Glucose 190 H Calcium 8.5 Total Bilirubin 0.4 AST 16 ALT 36 Alkaline Phosphatase 54 Total Protein 5.5 L Albumin 3.5 10/01/18 10/07/18 10/07/18 06:05 16:30 16:30 Creatine Kinase 52 CK-MB (CK-2) 2.02 Troponin I < 0.012 < 0.012 10/07/18 10/08/18 10/08/18 22:15 04:34 10:22 Creatine Kinase CK-MB (CK-2) Troponin I < 0.012 < 0.012 < 0.012 Impressions: Chest CT 10/01/18 00:00 IMPRESSION: 1. Emphysema. Tree-in-bud opacities at the bilateral upper lobes, suggestive of acute infection/ inflammation of the smaller airways such as bronchiolitis or bronchopneumonia. 2. 4.2 x 4.2 cm ascending thoracic aortic aneurysm. Chest X-Ray 10/07/18 06:00 IMPRESSION: NO ACUTE RADIOGRAPHIC FINDING IN THE CHEST. Qualifiers - * PATIENT BEING DISCHARGED WITH ANY OF THE FOLLOWING DIAGNOSIS: No
== END 2018-10-11 12:00 | disposition home or self-care (01) | DRG 189 ==
LOC: ER 05:42 → EH 10:12 → 3N 10-02 18:46
PROVIDERS: ADMIT Family Medicine; ATTEND Family Medicine
PROC: 5A09357 Assistance with Respiratory Ventilation, Less than 24 Consecutive Hours, Continuous Positive Airway Pressure (ICD-10-PCS; principal; 2018-10-01)
DX: J96.02 Acute respiratory failure with hypercapnia (principal); J18.9 Pneumonia, unspecified organism; J44.0 Chronic obstructive pulmonary disease with (acute) lower respiratory infection; Z68.41 Body mass index [BMI] 40.0-44.9, adult; J44.1 Chronic obstructive pulmonary disease with (acute) exacerbation; G47.33 Obstructive sleep apnea (adult) (pediatric); F41.1 Generalized anxiety disorder; F32.9 Major depressive disorder, single episode, unspecified; E66.01 Morbid (severe) obesity due to excess calories; F17.200 Nicotine dependence, unspecified, uncomplicated
CPT/HCPCS: 36415; 36600; 71045; 71046; 71250; 80048; 80053; 82550; 82553; 82803; 83605; 83735; 84132; 84484; 85025; 85027; 87040; 87205; 87804; 93005; 93010; 93306; 94660; J0696; J1650; J1956; J2920; J3475; J3490; J7512; J7620